=== PATIENT | male | born 1950 | race Caucasian/White ===

== ENCOUNTER 2016-02-17 11:40 | Inpatient (IN) | payer MEDICARE ==
[~2016-02-17] VITALS: Ht 177.8 cm; Wt 98.2 kg
[~2016-02-17 11:40] MED LIST: AMBIEN10 MG PO; AQUAPHOR HEALIN50 GM TOPICAL; ASPIRIN81 MG PO; BAYER CHEWABLE81 MG PO; EFFEXOR XR75 MG PO; EFFEXOR100 MG; EFFEXOR100 MG PO; EFFEXOR25 MG; FERROUS SULFAT325 MG PO; FISH OIL 1,0001 CA1 PO; FLEXERIL10 MG PO; FUROSEMIDE20 MG PO; GLIPIZIDE10 MG PO; GLUCOPHAGE1000 MG PO; GLUCOPHAGE500 MG PO; HYDROCODONE-APA1 TAB PO; HYTRIN1 MG PO; HYTRIN10 MG PO; ISOSORBIDE MONO30 M1 PO; ISOSORBIDE MONO60 M1; ISOSORBIDE MONO60 M1 PO; KENALOG IN ORABA5 GM TOPICAL; LANTUS INSULIN10 ML SC; LANTUS SOL100 UNIT/1 SC; LISINOPRIL2.5 MG PO; LOPRESSOR25 MG PO; LYRICA75 MG PO; MAG-OXIDE400 MG PO; MAGNESIUM OXID420 MG PO; MIRALAX17 GM PO; MOBIC7.5 MG PO; MULTI-DAY VITAM1 TAB PO; NAPROSYN500 MG PO; NEURONTIN 300300 MG PO; NEXIUM20 MG PO; NIASPAN500 MG PO; NIZORAL 2 % CRE15 GM TOPICAL; NORVASC10 MG PO; PRAVACHOL40 MG PO; PRAVACHOL80 MG PO; PRILOSEC20 MG PO; PRINIVIL20 MG PO; PROSCAR5 MG PO; PROVENTIL HFA6.7 GM INH; ROXICODONE30 MG PO; SENNA-C8.6 MG PO; TRICOR145 MG PO; TRIGLIDE50 MG PO; VALIUM10 MG PO; VIAGRA100 MG PO; VITAMIN B-1000 MCG/M IM; VITAMIN B-1250 MCG PO; VITAMIN D31000 UNI2 PO; VITAMIN D31000 UNIT PO; ZANAFLEX4 MG PO; ZITHROMAX250 MG PO
[2016-02-17 12:26] LABS: BASOPHILS 0.1 % (0.0-2.0); EOSINOPHILS 3.1 % (0-7); HEMATOCRIT 34.6 % (42.0-54.0); HEMOGLOBIN 11.1 g/dL (13.5-17.5); LYMPHOCYTES 6.1 % (15-50); MCH 28.2 pg (26.0-34.0); MCHC 32.1 g/dL (31.0-37.0); MCV 87.8 fL (80.0-100.0); MEAN PLATELET VOLUME 11.1 fL (7.4-10.4); MONOCYTES 9.4 % (2-11); NEUTROPHILS 81.3 % (40-80); RBC 3.94 10x6/uL (4.20-6.10); RDW 13.7 % (11.5-14.5)
[2016-02-17 12:28] LABS: PLATELET COUNT 92 10x3/uL (130-400)
[2016-02-17 12:39] LABS: ALBUMIN 3.6 g/dL (3.4-5.0); ANION GAP 13.5 mmol/L (8-16); BILIRUBIN - TOTAL 0.26 mg/dL (0.2-1.3); CALCIUM 8.6 mg/dL (8.5-10.1); CARBON DIOXIDE 24.3 mmol/L (21.0-32.0); CREATININE - SERUM 1.5 mg/dL (0.6-1.3); POTASSIUM - SERUM 3.8 mmol/L (3.5-5.1); PROTEIN - SERUM 6.9 g/dL (6.4-8.2)
[2016-02-17 13:03] LABS: TROPONIN-I 0.153 ng/mL (0.000-0.060)
[2016-02-17 14:32] LABS: APPEARANCE CLEAR (CLEAR); COLOR YELLOW (YELLOW); SPECIFIC GRAVITY 1.015 (1.005-1.020)
[2016-02-17 14:33] LABS: BILIRUBIN NEGATIVE (NEGATIVE); GLUCOSE 100 mg/dL (NEGATIVE); KETONE NEGATIVE (NEGATIVE); LEUKOCYTE ESTERASE TRACE (NEGATIVE); NITRITE NEGATIVE (NEGATIVE); PROTEIN NEGATIVE (NEGATIVE); UROBILINOGEN NORMAL (NORMAL)
[2016-02-17 14:38] LABS: BACTERIA FEW /hpf (NONE SEEN); MUCUS <1+ /lpf (NONE SEEN); RED CELLS - URINE RARE /hpf (0-5)
--- NOTE | 2016-02-17 15:40 | NUR ---
PATIENT TO ROOM 2106 FROM ER, PATIENT IS ALERT AND ORIENTED AT THIS TIME. PATIENT HAS A L FA IV AT THIS TIME. PATIENT ON 2L/MIN VIA NC WITH NAD NOTED AT THIS TIME. 02 SAT 98%. PATIENT IS COMPLAING OF CHEST PAIN AND PAIN THAT IS "JUST ALL OVER", STATES THAT "THEY NORMALLY GIVE ME MORPHINE" WILL CALL DR BECAUSE PATIENT DOESNT HAVE ANYTHING ORDERED FOR PAIN. SR ON MONITOR WITH A RATE OF 80 AT THIS TIME. WILL CONT TOMONITOR
[2016-02-17 16:06] VITALS: BP 151/72; BMI 28.7
--- NOTE | 2016-02-17 16:15 | NUR ---
TALKED WITH MAURA PENA, SHE ORDERED TO GIVE PATIENT 1-4MG OF MORPHINE Q4HPRN FOR CHEST PAIN. CPOC
--- NOTE | 2016-02-17 18:18 | NUR ---
PATIENT SITTING UP ON SIDE OF BED EATING DINNER. DENIES ANY NEEDS, STATES PAIN IS BETTER. WILL CONT TO MONITOR
[2016-02-17 19:01] LABS: CKMB 1.4 U/L (0.0-3.6)
[2016-02-17 19:02] LABS: CREATINE KINASE 390 UL (21-232); TROPONIN-I 0.155 ng/mL (0.000-0.060)
--- NOTE | 2016-02-17 22:41 | NUR ---
PT AWAKE, ALERT, ORIENTED, STANDING AT SINK RINSING HIS MOUTH. PT IS REQUESTING HIS PRN MORPHINE, DENIES ANY OTHER NEEDS. CONTINUE TO MONITOR CLOSELY. I HAVE DONE TEACHING ABOUT TAKING STEROIDS AND BEING DILIGENT WITH CHECKING HIS BLOOD SUGAR WHEN HE IS D/C. PT STATED HE WOULD. CONTINUE TO MONITOR CLOSELY. PT IS BLIND, REQUIRING SOME ASSISTANCE.
[2016-02-17 22:42] VITALS: BP 153/81
[2016-02-18 01:30] LABS: CKMB 1.1 U/L (0.0-3.6); CREATINE KINASE 379 UL (21-232)
[2016-02-18 05:35] VITALS: BP 150/90
--- NOTE | 2016-02-18 06:04 | NUR ---
PT LYING IN BED, EYES CLOSED, RESPIRATIONS EVEN AND UNLABORED. CONTINUE TO MONITOR CLOSELY.
[2016-02-18 07:13] LABS: CKMB 1.5 U/L (0.0-3.6); CREATINE KINASE 362 UL (21-232)
[2016-02-18 07:15] LABS: TROPONIN-I 0.144 ng/mL (0.000-0.060)
[2016-02-18 07:25] VITALS: BP 146/70
--- NOTE | 2016-02-18 07:25 | NUR ---
RECEIVED REPORT. ASSUMED CARE OF PATIENT. PATIENT OOB TO RESTROOM. PATIENT LEGALLY BLIND. RESP EVEN AND UNLABORED. NO DISTRESS. A&O. CALL LIGHT PLACED WITHIN REACH.
--- NOTE | 2016-02-18 08:17 | NUR ---
MEDICATED FOR PAIN AT THIS TIME. NO DISTRESS.
--- NOTE | 2016-02-18 08:37 | NUR ---
REFUSING SCD'S. PT IS UP AD XIAO
--- NOTE | 2016-02-18 09:46 | NUR ---
PATIENT UP AMBULATING IN ROOM, WASHING HIS FACE. PATIENT DENIES NEEDS AT THIS TIME. NO DISTRESS. CALL LIGHT WITHIN REACH.
[2016-02-18 11:00] VITALS: Ht 177.8 cm; Wt 98.2 kg
[2016-02-18 11:21] VITALS: BP 143/74
--- NOTE | 2016-02-18 11:49 | NUR ---
FSBS 360. 10 UNITS HUMALOG ADMINISTERED PER SLIDING SCALE AT THIS TIME. NO DISTRESS.
[2016-02-18 14:24] LABS: % SATURATION 14 % (15-55); IRON 49 ug/dl (35-150); TOTAL IRON BIND CAPACITY 337 ug/dl (260-445); UNSAT IRON BIND CAPACITY 288 ug/dl (150-375)
[2016-02-18 15:33] VITALS: BP 115/59
--- NOTE | 2016-02-18 17:24 | NUR ---
FSBS 358. 16 UNITS HUMALOG ADMINISTERED AT THIS TIME. NO DISTRESS.
[2016-02-18 22:28] VITALS: BP 137/66
[2016-02-19 00:59] VITALS: BP 123/57
--- NOTE | 2016-02-19 03:14 | NUR ---
NURSE ROUNDS 19:30 - PT AWAKE, ALERT, ORIENTED, C/O PAIN EVEN AFTER RECENT MORPHINE IVP. DENIES ANY NEEDS. PT IS BLIND, WITH RT EYE IMPLANT. BED LOW, CALL LIGHT IN REACH, SIDE RAILS X 2, HOB 10 DEGREES. PT IS MOSTLY SELF ASSIST, AND REQUIRES ONLY MINIMAL ASSISTANCE AT THIS TIME.
--- NOTE | 2016-02-19 04:09 | NUR ---
WHEN PULLING PTS 21:00 MEDS FOR THIS SHIFT, I PULLED TWO LYRICA 75MG, WHEN ONLY ONE WAS ORDERED, AND I ONLY GAVE ONE TO PT ORDERED. THIS DID CAUSE A DISCREPANCY IN THE PYXIS. I DID RETURN THE SECOND LYRICA 75MG TO THE INTERNAL BIN.
--- NOTE | 2016-02-19 04:12 | NUR ---
I SPOKE WITH PT R/T THE ORDERED STOOL TESTS. PT STATES HE HAS NOT HAD A BM RECENTLY, AND THAT HE HAS NOT ANY MORE BOUTS OF DIARRHEA AT PRESENT TIME. PROVIDED A [place] HAT AND COLLECTION CUP FOR WHEN HE IS ABLE TO HAVE A BM.
[2016-02-19 05:21] VITALS: BP 137/74
[2016-02-19 06:59] LABS: BASOPHILS 0.1 % (0.0-2.0); EOSINOPHILS 0 % (0-7); HEMATOCRIT 30.4 % (42.0-54.0); HEMOGLOBIN 9.9 g/dL (13.5-17.5); IMMATURE GRANULOCYTES 0.5 % (0-5); LYMPHOCYTES 8.3 % (15-50); MCH 28.4 pg (26.0-34.0); MCHC 32.6 g/dL (31.0-37.0); MCV 87.1 fL (80.0-100.0); MEAN PLATELET VOLUME 11.7 fL (7.4-10.4); MONOCYTES 5.4 % (2-11); NEUTROPHILS 85.7 % (40-80); RBC 3.49 10x6/uL (4.20-6.10); RDW 13.9 % (11.5-14.5)
[2016-02-19 07:08] LABS: PLATELET COUNT 115 10x3/uL (130-400); WBC 9.4 10x3/uL (4.8-10.8)
[2016-02-19 07:37] LABS: ANION GAP 11.2 mmol/L (8-16); CARBON DIOXIDE 26.5 mmol/L (21.0-32.0); CREATININE - SERUM 1.2 mg/dL (0.6-1.3); POTASSIUM - SERUM 4.7 mmol/L (3.5-5.1)
[2016-02-19 08:00] VITALS: BP 142/65
[2016-02-19 08:15] LABS: ERYTHROCYTE SEDIMENTATION RATE 32 mm/hr (0-20)
--- NOTE | 2016-02-19 09:30 | NUR ---
Lying in bed, has requested his pain medication for 1000." I hurt all over" Respirations easy, call light within reach.
[2016-02-19 12:00] VITALS: BP 143/74
[2016-02-19 14:21] LABS: FOLATE (FOLIC ACID) - SERUM 2.8 ng/mL (>3.0)
[2016-02-19 16:00] VITALS: BP 128/65
[2016-02-19 20:26] VITALS: BP 172/85
--- NOTE | 2016-02-19 23:35 | NUR ---
NURSE ROUNDS 19:30 - PT AWAKE, ALERT, ORIENTED, REMINDING ME THAT HIS PAIN MEDICATION IS DUE @ 21:30 (ACTUALLY WAS NOT DUE UNTIL 22:40). DENIES ANY NEEDS. CONTINUE TO MONITOR CLOSELY. BED LOW, CALL LIGHT IN REACH, SIDE RAILS X 2, HOB 15 DEGREES.
[2016-02-20 00:38] VITALS: BP 154/67
[2016-02-20 04:40] VITALS: BP 159/85
[2016-02-20 05:57] LABS: INR 1.04 (0.85-1.17); PROTIME 13.4 SECONDS (11.6-15.0)
[2016-02-20 06:13] LABS: ANION GAP 12.8 mmol/L (8-16); C-REACTIVE PROTEIN 2.7 mg/dL (0.0-0.9); CALCIUM 9.6 mg/dL (8.5-10.1); CARBON DIOXIDE 27.1 mmol/L (21.0-32.0); CREATININE - SERUM 1.3 mg/dL (0.6-1.3); POTASSIUM - SERUM 4.9 mmol/L (3.5-5.1)
[2016-02-20 06:41] LABS: BASOPHILS 0.1 % (0.0-2.0); EOSINOPHILS 0 % (0-7); HEMATOCRIT 31.2 % (42.0-54.0); HEMOGLOBIN 10.2 g/dL (13.5-17.5); IMMATURE GRANULOCYTES 0.7 % (0-5); LYMPHOCYTES 8.1 % (15-50); MCH 28.6 pg (26.0-34.0); MCHC 32.7 g/dL (31.0-37.0); MCV 87.4 fL (80.0-100.0); MEAN PLATELET VOLUME 11.7 fL (7.4-10.4); MONOCYTES 6.1 % (2-11); PLATELET COUNT 136 10x3/uL (130-400); RBC 3.57 10x6/uL (4.20-6.10); RDW 13.9 % (11.5-14.5); WBC 8.3 10x3/uL (4.8-10.8)
[2016-02-20 08:00] VITALS: BP 143/76
--- NOTE | 2016-02-20 08:17 | NUR ---
AM ROUNDING- PT IS LAYING IN BED ON BACK REQUESTING PAIN MEDICINE. TELEHEALTH DIRECTOR NURSE HILARIA GAVE PRN PAIN MEDICINE ORDERED. PT IS ON EP. FSBS ACHS. PT IS BLIND, HAS IMPLANT IN RIGHT EYE, HE CAN SEE SHADOWS. PT CANNOT SEE OUT OF LEFT EYE. IV SEEN TO LEFT WRIST SALINE LOCKED AND PATENT. ON 2L OF VIA NC PRN. ON MONITOR SHOWING SR, HR 84. PT IS UP AD XIAO AND ON LOVENOX. WILL CONTINUE TO MONITOR.
[2016-02-20 08:30] LABS: ERYTHROCYTE SEDIMENTATION RATE 25 mm/hr (0-20)
[2016-02-20 09:15] LABS: ANA REFLEX - DIRECT Negative (Negative)
[2016-02-20 12:00] VITALS: BP 138/78
--- NOTE | 2016-02-20 12:28 | NUR ---
Nutrition follow-up: Diet: consistent CHO Pt only eats two meals a day and his eats one of his meals every day. PO intake 100% of meals eaten. Labs reviewed; FSBS running high Wt: 218# Will continue to provide food choices and honor food preferences within diet restrictions. RDN following.
[2016-02-20 16:00] VITALS: BP 137/67
--- NOTE | 2016-02-20 18:33 | NUR ---
PT WALKING AROUND ROOM WITH IV RUNNING AT KVO (10). PT IS CURRENTLY REQUESTING PAIN MEDICATION. WILL CONTINUE TO MONITOR.
[2016-02-20 20:34] VITALS: BP 140/78
[2016-02-21] VITALS: BP 140/86
[2016-02-21 05:16] LABS: BASOPHILS 0.1 % (0.0-2.0); EOSINOPHILS 0.1 % (0-7); HEMATOCRIT 33.8 % (42.0-54.0); IMMATURE GRANULOCYTES 1.3 % (0-5); LYMPHOCYTES 10.7 % (15-50); MCH 28.4 pg (26.0-34.0); MCHC 32.5 g/dL (31.0-37.0); MCV 87.3 fL (80.0-100.0); MEAN PLATELET VOLUME 10.9 fL (7.4-10.4); MONOCYTES 8.1 % (2-11); NEUTROPHILS 79.7 % (40-80); PLATELET COUNT 138 10x3/uL (130-400); RBC 3.87 10x6/uL (4.20-6.10); WBC 7.8 10x3/uL (4.8-10.8)
--- NOTE | 2016-02-21 05:29 | NUR ---
CALL LIGHT IN REACH. WILL CONTINUE WITH PLAN OF CARE.
[2016-02-21 05:32] LABS: CALCIUM 9.9 mg/dL (8.5-10.1); CARBON DIOXIDE 28.8 mmol/L (21.0-32.0); CREATININE - SERUM 1.2 mg/dL (0.6-1.3); POTASSIUM - SERUM 4.8 mmol/L (3.5-5.1)
--- NOTE | 2016-02-21 07:45 | NUR ---
AM ROUNDING- PT IS CURRENTLY USING BATHROOM. UP AD XIAO. ON MONITOR SHOWING SR, HR 66. IV SEEN TO LEFT WRIST WITH NS RUNNING AT KVO (10). ON 2L 0F 02 VIA NC. PT STATES HE IS BLIND IN LEFT EYE AND HAS IMPLANT IN RIGHT EYE THAT HE CAN ONLY SEE SHADOWS. 0748- CALLED INTO PTS ROOM WITH PT STATING HE ACCIDENTLY PULLED OUT HIS IV CATHETER. PT UNHOOKED HIMSELF FROM IV PUMP. INFORMED PT TO GET IN BED AND I WILL TRY AND RESITE IV. WILL CONTINUE TO MONITOR.
[2016-02-21 08:18] LABS: IMMUNOGLOBULIN E 28 IU/mL (0-100)
--- NOTE | 2016-02-21 08:25 | NUR ---
PAGEYuliana LORENZO TO SEE IF WE COULD GET PT PO ORDERS SINCE PT PULLED IV OUT. AWAITING CALLBACK.
[2016-02-21 09:01] VITALS: BP 147/85
[2016-02-21 09:15] LABS: ANA REFLEX - DIRECT Negative (Negative)
--- NOTE | 2016-02-21 09:29 | NUR ---
JENNIFER RN CALLED MAURA AND RECEIVED PO ORDERS FOR PTS MORPHINE. PT NOW REFUSING ALL MEDICINE BECAUSE HE WANTS IV MORPHINE NOT PO MORPHINE. PT NOW STATES HE JUST WANTS TO GO HOME. 9391- PAGED MAURA TO INFORM HER OF SITUATION. AWAITING CALLBACK.
--- NOTE | 2016-02-21 09:32 | NUR ---
0933- MAURA IS ON UNIT. INFORMED HER OF SITUATION WITH PT WANTING TO GO HOME AND REFUSING ALL OF HIS MORNING MEDICINE. MAURA STATED HE WILL HAVE TO WAIT UNITL SHE MAKES HER ROUNDS TO SEE HIM. WILL CONTINUE TO MONITOR.
--- NOTE | 2016-02-21 10:01 | NUR ---
PATIENT IS UPSET AND STATING THAT HE IS LEAVING WHEN HIS GETS HERE. PATIENT IS LEGALLY BLIND AND STATES THAT HIS , FERNIE WILL DRIVE HIM HOME AT DISCHARGE. HE STATES HE DOES NOT DRIVE BECAUSE HE IS BLIND. HIS PCP IS DR. VÁSQUEZ AT THE [facility]. [facility] AND DOES NOT USE ANY LOCAL PHARMACIES. HE INSISTS HE WILL GET MEDS FROM [facility]. PATIENT STATES HE HAS A CANE, NEBULIZER AND CPAP PROVIDED BY THE [facility]. HE DENIES HOME HEALTH STATING HIS GETS PAID FROM THE [facility] TO CARE FOR HIM. PATIENT STATES HE DOES NOT KNOW HOW MANY STEPS TO ENTER HIS HOME, "I NEVER COUNTED THEM". PATIENT STATES HIS IS ON HER WAY HERE TO GET HIM AND HE STATES HE WILL NEVER COME BACK TO THIS HOSPITAL. I ASKED HIM IF I COULD HAVE THE PIPE FITTER GAS PIPE COME TALK WITH HIM ABOUT HIS CONCERNS. HE SAID FLAT OUT NO, I JUST WANT YOU ALL TO LEAVE ME ALONE. NO DISCHARGE NEEDS IDENTIFIED.
--- NOTE | 2016-02-21 10:08 | NUR ---
Is the patient Alert and Oriented? Yes 0 * How many steps to enter\exit or inside your home? DON'T KNOW 0 * PCP DR. VÁSQUEZ AT THE [facility] 0 * Pharmacy GETS MEDS FROM [place]-REFUSES TO USE LOCAL PHARMACY 0 * Preadmission Environment Home with Family 0 * ADLs Independent 0 * Equipment Cane CPAP Nebulizer 0 * Other Equipment [facility] * List name and contact numbers for known caregivers / representatives who currently or will assist patient after discharge: SPOUSE: FERNIE [phone] 0 * Community resources currently utilized None 0 * Additional services required to return to the preadmission environment? No 0 * Can the patient safely return to the preadmission environment? Yes 0 * Has this patient been hospitalized within the prior 30 days at any hospital? No
[2016-02-21 10:17] LABS: HEP B CORE AB TOTAL Negative (Negative); HEPATITIS C ANTIBODY <0.1 (0.0-0.9); IMMUNOGLOBULIN A 279 mg/dL (61-437); IMMUNOGLOBULIN G 875 mg/dL (700-1600)
--- NOTE | 2016-02-21 10:51 | NUR ---
1042Cheyenne RODRIGUEZ RN WATCHED PT WALK OUT OF ROOM WITH . PT LEFT AMA AND REFUSED TO SIGN DISCHARGE PAPERWORK. PT REFUSED TO SPEAK WITH CASE MANAGEMENT. WAS UNABLE TO GET SHIFT ASSESSMENT DUE TO THE FACT THAT PT LEFT WITHOUT ASSESSMENT BEING DONE.
[2016-02-21 12:15] LABS: EBV - EARLY ANTIGEN AB IGG <9.0 U/mL (0.0-8.9); EBV VIRAL CAPSID AB IGG >600.0 U/mL (0.0-17.9); EBV VIRAL CAPSID AB IGM <36.0 U/mL (0.0-35.9)
[2016-02-21 15:21] LABS: MYCOPLASMA PNEUMO IGG QNS U/mL (())
[2016-02-25 12:17] LABS: BARTONELLA - HENSELAE IGG Negative titer (Neg:<1:320); BARTONELLA - HENSELAE IGM Negative titer (Neg:<1:100); BARTONELLA - QUINTANA IGG Negative titer (Neg:<1:320); BARTONELLA - QUINTANA IGM Negative titer (Neg:<1:100); RMSF IGM 1.24 index (0.00-0.89)
[2016-02-25 14:20] LABS: EHRLICHIA CHAFF IGG Negative (Neg:<1:64); EHRLICHIA CHAFF IGM Negative (Neg:<1:20); HGE IGG TITER Negative (Neg:<1:64); HGE IGM TITER Negative (Neg:<1:20)
[2016-02-25 16:12] LABS: F. TULARENSIS - IGG Negative (()); F. TULARENSIS - IGM Negative (())
--- NOTE | 2016-02-28 11:11 | EC ---
PATIENT:RADHA RAJAN DATE OF SERVICE: 02/17/16 SEX: M MEDICAL RECORD: [id number] DATE OF : 46 LOCATION:D.M2 D.210 AGE OF PATIENT: 65 ADMISSION DATE: 02/17/16 REFERRING PHYSICIAN: INTERPRETING PHYSICIAN: CECIL COWAN MD ECHOCARDIOGRAM REPORT ECHO CHARGES 4 ECHO COMPLETE CLINICAL DIAGNOSIS: ASSESS FOR ENDCARDITIS DUE TO FEVER AND INFECTION OF UNKNOWN ETOLOGY. ASSESS PACER LEADS ECHOCARDIOGRAPHIC MEASUREMENTS (adult normal given) AC root (d.<3.7cm) 4.4 LV Septum d (<1.2 cm> 1.7 Valve Excursion 2.0 LV Septum (systole) 1.8 Left Atria (s.<4.0cm> 4.5 LVPW d(<1.2cm) 2.0 RV (d.<2.3cm) 3.8 LVPW (sytole) 2.2 LV diastole(<5.6CM) 6.8 MV E-F(>70mm/sec) LV systole 4.4 LVOT Diameter 2.1 MV exc.(>10mm) 2.4 Est.ejection fraction (50-75%) Pericardial Effusion N DOPPLER: LVIT A 104 E 68.0 LA RVSP 26 LVOT 125 AOP1/2T 492 Asc. Ao 138 RVOT 84 RA PA 128 AV Gradient Peak 7.6 AV Mean 3.7 AV Area 3.0 MV Gradient Peak 5.46 MV Mean 1.68 MV Area COMMENTS: Manager Regional Sales: Octaviano HOUSE Inspection Clerk:Damon Crawley TAPE# PACS DATE OF SERVICE: 02/20/2016 Echocardiogram FINDINGS: 1. Left ventricular chamber size is mildly dilated. Left ventricular systolic function is preserved. Overall ejection fraction estimated at 60%. 2. Left atrium is enlarged at 4.5 cm. Right atrium and right ventricular sizes are within normal limits. ECHOCARDIOGRAM REPORT [id number] RADHA RAJAN 3. Valvular structures have normal structure and motion. 4. Doppler interrogation reveals mild aortic insufficiency, mild mitral regurgitation, and mild tricuspid regurgitation. No other valvular insufficiency or stenosis. Pulmonary systolic pressure is normal estimated at 26 mmHg. 5. No evidence of vegetative endocarditis. TRANSINT:[id number] Voice Confirmation ID: [id number] DOCUMENT ID: [id number] CECIL COWAN MD at 1111 CC: [id number] DICTATION DATE: 02/20/16 1740 MARKETING COMPLIANCE MANAGER: 02/20/162125 DIS IN 02/21/16 [id number] [place] [address]
--- NOTE | 2016-04-07 09:49 | DS ---
PATIENT:RADHA RAJAN :46 MEDICAL RECORD: [id number] DISCHARGE SUMMARY ADMISSION DATE: 02/17/16 DISCHARGE DATE: 02/21/16 DATE OF ADMISSION: 02/17/2016 DATE OF DISCHARGE: 02/21/2016 DISCHARGE DIAGNOSES: 1. Fever. 2. Acute exacerbation of chronic obstructive pulmonary disease. 3. Dyspnea on exertion. 4. Unintentional weight loss. 5. Elevated troponin secondary to demand ischemia. 6. Thrombocytopenia. 7. Splenomegaly. 8. Coronary artery disease. 9. Adithya dysfunction post-pacemaker placement. 10. Laqda-nx-yezjwgy kidney injury. 11. Hypertension. 12. Hyperlipidemia. 13. Blindness. 14. Coronary artery disease. 15. Iron deficiency anemia. CONSULTS: 1. Dr. Weems for elevated troponin. 2. Dr. Hagan for febrile illness. 3. Dr. Link. DIAGNOSTIC STUDIES OR TESTS: 1. Chest x-ray, which shows mild interstitial disease. 2. Venous Doppler showed no evidence of DVT in the lower extremity. 3. Abdominal ultrasound, which shows a fatty liver infiltrates with splenomegaly. 4. CT of the chest shows interstitial disease in the right upper lobe with some mild chronic fibro atelectasis in bilateral lung everett and minimal emphysema. There were no lesions or infiltrate seen. 5. A 2D echo, which shows an EF of 60% with a normal right atria and right ventricle sizes. There was mild aortic insufficiency and mild mitral regurgitation as well as tricuspid regurgitation. There was no evidence of vegetative endocarditis. HOSPITAL COURSE: The full H&P is listed elsewhere on the chart for this 65-year-old male patient who was admitted into the inpatient setting with a febrile illness. He had failed outpatient therapy for his COPD and respiratory exacerbation with oral doxycycline. He was admitted into the inpatient setting with COPD exacerbation and pqaau-uh-krzvxai sinusitis as well as an elevated troponin. His troponin was thought to be secondary to a stress week. The patient had recently had a left heart cath, which showed minimal coronary artery disease, more small vessel disease in nature. He underwent several diagnostic tests. Abdominal ultrasound revealed some hepatosplenomegaly with possible portal hypertension. He was placed on antibiotic therapy with aggressive pulmonary toilet with DuoNebs and DISCHARGE SUMMARY REPORT [id number] RADHA RAJAN mucolytics. The patient's antibiotic coverage included azithromycin and Rocephin. He underwent a repeat echo, see those findings above. He was noted to have some iron deficiency anemia and was started on oral iron supplementation. Symptomatology began to improve. His steroid dosing was deescalated. The patient's respiratory status improved dramatically with aggressive pulmonary toilet; however, the patient began to want more and more analgesics for "pain" due to fibromyalgia. He became dissatisfied during his hospitalization and left the hospital AMA. TRANSINT:[id number] Voice Confirmation ID: [id number] DOCUMENT ID: [id number] Dictated By: RODRIGO PATINO I have interviewed/examined the above patient and agree with these documented findings. OSCAR ESCOBAR MD at 1421 at 0948 CC: [id number] DICTATION DATE: 04/01/16 0854 SUPERVISOR VARNISH: 04/01/16 2339 DIS IN 02/21/[address] [facility] [address] [place] [address]
== END 2016-02-21 10:50 | disposition left against medical advice (07) | DRG 190 ==
LOC: D.ER 11:40 → D.M2 15:11
PROVIDERS: Emergency Medicine; Internal Medicine Pulmonary Disease; Student in an Organized Health Care Education/Training Program; ADMIT Family Medicine Adult Medicine
DX: J44.1 Chronic obstructive pulmonary disease with (acute) exacerbation (principal); J18.9 Pneumonia, unspecified organism; I24.8 Other forms of acute ischemic heart disease; J98.11 Atelectasis; N17.9 Acute kidney failure, unspecified; I25.10 Atherosclerotic heart disease of native coronary artery without angina pectoris; E11.22 Type 2 diabetes mellitus with diabetic chronic kidney disease; I12.9 Hypertensive chronic kidney disease with stage 1 through stage 4 chronic kidney disease, or unspecified chronic kidney disease; N18.9 Chronic kidney disease, unspecified; D50.9 Iron deficiency anemia, unspecified; J01.90 Acute sinusitis, unspecified; K76.0 Fatty (change of) liver, not elsewhere classified; R16.2 Hepatomegaly with splenomegaly, not elsewhere classified; R63.4 Abnormal weight loss; Z68.28 Body mass index [BMI] 28.0-28.9, adult; M79.7 Fibromyalgia; E78.5 Hyperlipidemia, unspecified; G47.33 Obstructive sleep apnea (adult) (pediatric); K21.9 Gastro-esophageal reflux disease without esophagitis; H54.8 Legal blindness, as defined in USA; Z95.0 Presence of cardiac pacemaker; Z95.5 Presence of coronary angioplasty implant and graft

== ENCOUNTER → 2016-03-11 20:54 | Outpatient (CLI) | payer MEDICARE ==
[2016-02-18 11:00] VITALS: BMI 31.3
[2016-03-16 14:15] LABS: RMSF IGM 1.17 index (0.00-0.89)
== END | disposition home or self-care (01) ==
LOC: D.LABREF 20:54
PROVIDERS: Student in an Organized Health Care Education/Training Program
DX: A77.0 Spotted fever due to Rickettsia rickettsii (principal)

== ENCOUNTER 2016-11-24 09:19 | Emergency (ER) | payer MEDICARE ==
[2016-02-18 11:00] VITALS: BMI 31.3
[2016-11-24 10:18] LABS: BASOPHILS 0.2 % (0-2); EOSINOPHILS 1.5 % (0-7); HEMOGLOBIN 10.4 g/dL (13.5-17.5); IMMATURE GRANULOCYTES 0.2 % (0-5); LYMPHOCYTES 13.8 % (15-50); MCH 30.3 pg (26.0-34.0); MCHC 33.5 g/dL (31.0-37.0); MCV 90.4 fL (80.0-100.0); MEAN PLATELET VOLUME 10.9 fL (7.4-10.4); MONOCYTES 9.4 % (2-11); NEUTROPHILS 74.9 % (40-80); RBC 3.43 10x6/uL (4.20-6.10); RDW 12.8 % (11.5-14.5); WBC 9.1 10x3/uL (4.8-10.8)
[2016-11-24 10:19] LABS: PLATELET COUNT 106 10x3/uL (130-400)
[2016-11-24 10:30] LABS: ALBUMIN 3.2 g/dL (3.4-5.0); ALKALINE PHOSPHATASE 68 U/L (46-116); ALT (SGPT) 30 U/L (10-68); BILIRUBIN - TOTAL 0.36 mg/dL (0.2-1.3); CALC OSMOLALITY 272 mosm/kg (275-300); CALCIUM 8.5 mg/dL (8.5-10.1); CARBON DIOXIDE 26.9 mmol/L (21.0-32.0); CHLORIDE - SERUM 100 mmol/L (98-107); CREATININE - SERUM 1.3 mg/dL (0.6-1.3); GLUCOSE 178 mg/dL (74-106); MAGNESIUM - SERUM 1.4 mg/dL (1.8-2.4); POTASSIUM - SERUM 3.8 mmol/L (3.5-5.1); PROTEIN - SERUM 6.8 g/dL (6.4-8.2); SODIUM 135 mmol/L (136-145); UREA NITROGEN 11 mg/dL (7-18); eGFR NON AFRICAN AMERICAN 58 mL/min (90-120)
[2016-11-24 10:39] LABS: KETONE - SERUM NEGATIVE (NEGATIVE)
[2016-11-26 16:15] LABS: EHRLICHIA CHAFF IGG Negative (Neg:<1:64); EHRLICHIA CHAFF IGM Negative (Neg:<1:20); HGE IGG TITER Negative (Neg:<1:64); HGE IGM TITER Negative (Neg:<1:20)
[2016-11-27 20:09] LABS: RMSF IGM 1.13 index (0.00-0.89)
== END 2016-11-24 14:59 | disposition home or self-care (01) ==
LOC: D.ER 09:19
PROVIDERS: Emergency Medicine
DX: A77.0 Spotted fever due to Rickettsia rickettsii (principal); E11.9 Type 2 diabetes mellitus without complications; J44.9 Chronic obstructive pulmonary disease, unspecified; I10 Essential (primary) hypertension

== ENCOUNTER 2016-12-03 07:40 | Emergency (ER) | payer MEDICARE ==
[2016-02-18 11:00] VITALS: BMI 31.3
[2016-12-03 08:51] LABS: BASOPHILS 0.2 % (0-2); EOSINOPHILS 2.3 % (0-7); HEMATOCRIT 33.3 % (42.0-54.0); HEMOGLOBIN 11.3 g/dL (13.5-17.5); IMMATURE GRANULOCYTES 0.2 % (0-5); LYMPHOCYTES 14.2 % (15-50); MCH 30.1 pg (26.0-34.0); MCHC 33.9 g/dL (31.0-37.0); MCV 88.6 fL (80.0-100.0); MEAN PLATELET VOLUME 10.3 fL (7.4-10.4); MONOCYTES 9.2 % (2-11); NEUTROPHILS 73.9 % (40-80); RBC 3.76 10x6/uL (4.20-6.10); RDW 12.4 % (11.5-14.5); WBC 10.3 10x3/uL (4.8-10.8)
[2016-12-03 08:58] LABS: PLATELET COUNT 154 10x3/uL (130-400)
[2016-12-03 09:01] LABS: ALBUMIN 3.4 g/dL (3.4-5.0); ANION GAP 13.5 mmol/L (8-16); BILIRUBIN - TOTAL 0.38 mg/dL (0.2-1.3); CALCIUM 9.2 mg/dL (8.5-10.1); CARBON DIOXIDE 26.7 mmol/L (21.0-32.0); CREATININE - SERUM 1.1 mg/dL (0.6-1.3); POTASSIUM - SERUM 4.2 mmol/L (3.5-5.1); PROTEIN - SERUM 7.5 g/dL (6.4-8.2)
[2016-12-03 09:35] LABS: MAGNESIUM - SERUM 1.4 mg/dL (1.8-2.4); THYROID STIMULATING HORMONE 2.18 uIU/mL (0.36-3.74)
[2016-12-03 09:38] LABS: APPEARANCE CLEAR (CLEAR); BILIRUBIN NEGATIVE (NEGATIVE); COLOR YELLOW (YELLOW); GLUCOSE 1000 mg/dL (NEGATIVE); KETONE NEGATIVE (NEGATIVE); NITRITE NEGATIVE (NEGATIVE); PROTEIN NEGATIVE (NEGATIVE); SPECIFIC GRAVITY 1.015 (1.005-1.020); UROBILINOGEN NORMAL (NORMAL)
[2016-12-03 11:54] LABS: TROPONIN-I 0.072 ng/mL (0.000-0.060)
[2016-12-07 20:08] LABS: RMSF IGM 1.32 index (0.00-0.89)
== END 2016-12-03 14:02 | disposition home or self-care (01) ==
LOC: D.ER 07:40
PROVIDERS: Emergency Medicine
DX: R53.1 Weakness (principal); R50.9 Fever, unspecified; G40.909 Epilepsy, unspecified, not intractable, without status epilepticus; R41.82 Altered mental status, unspecified; Z87.898 Personal history of other specified conditions; E11.65 Type 2 diabetes mellitus with hyperglycemia; D64.9 Anemia, unspecified; E83.42 Hypomagnesemia

== ENCOUNTER 2017-04-16 15:46 | Emergency (ER) | payer OTHER ==
[2016-02-18 11:00] VITALS: BMI 31.3
== END 2017-04-16 19:05 | disposition left against medical advice (07) ==
LOC: D.ER 15:46
DX: R05 Cough (principal)

== ENCOUNTER 2017-06-23 20:46 | Emergency (ER) | payer OTHER ==
[2016-02-18 11:00] VITALS: BMI 31.3
[2017-06-23 23:56] LABS: HEMOGLOBIN 12.6 g/dL (13.5-17.5); LYMPHOCYTES 20.6 % (15-50); MCH 29.3 pg (26.0-34.0); MCHC 34.1 g/dL (31.0-37.0); MEAN PLATELET VOLUME 9.8 fL (7.4-10.4); PLATELET COUNT 142 10x3/uL (130-400); RDW 12.6 % (11.5-14.5); WBC 7.2 10x3/uL (4.8-10.8)
[2017-06-24 00:18] LABS: ALBUMIN 3.7 g/dL (3.4-5.0); ANION GAP 11.9 mmol/L (8-16); BILIRUBIN - TOTAL 0.26 mg/dL (0.2-1.3); CALCIUM 9.3 mg/dL (8.5-10.1); CREATININE - SERUM 1.2 mg/dL (0.6-1.3); POTASSIUM - SERUM 3.9 mmol/L (3.5-5.1); PROTEIN - SERUM 8.2 g/dL (6.4-8.2)
== END 2017-06-24 01:39 | disposition home or self-care (01) ==
LOC: D.ER 20:46
PROVIDERS: Physician Assistant Medical
DX: M19.90 Unspecified osteoarthritis, unspecified site (principal); E11.9 Type 2 diabetes mellitus without complications; G40.909 Epilepsy, unspecified, not intractable, without status epilepticus

== ENCOUNTER 2017-07-06 07:10 | Emergency (ER) | payer OTHER ==
[2016-02-18 11:00] VITALS: BMI 31.3
== END 2017-07-06 07:45 | disposition home or self-care (01) ==
LOC: D.ER 07:10
DX: L20.9 Atopic dermatitis, unspecified (principal); E11.9 Type 2 diabetes mellitus without complications; G40.909 Epilepsy, unspecified, not intractable, without status epilepticus

== ENCOUNTER → 2017-08-02 12:39 | Outpatient (CLI) | payer OTHER ==
[2016-02-18 11:00] VITALS: BMI 31.3
[2017-08-02 13:33] LABS: BASOPHILS 0.6 % (0-2); EOSINOPHILS 6.6 % (0-7); HEMATOCRIT 35.8 % (42.0-54.0); IMMATURE GRANULOCYTES 0.4 % (0-5); LYMPHOCYTES 26.2 % (15-50); MCH 29.9 pg (26.0-34.0); MCHC 33.5 g/dL (31.0-37.0); MCV 89.3 fL (80.0-100.0); MONOCYTES 10.1 % (2-11); NEUTROPHILS 56.1 % (40-80); PLATELET COUNT 138 10x3/uL (130-400); RBC 4.01 10x6/uL (4.20-6.10); RDW 12.7 % (11.5-14.5); WBC 4.9 10x3/uL (4.8-10.8)
[2017-08-02 13:54] LABS: ANION GAP 13.8 mmol/L (8-16); CALCIUM 9.4 mg/dL (8.5-10.1); CARBON DIOXIDE 28.1 mmol/L (21.0-32.0); CREATININE - SERUM 1.1 mg/dL (0.6-1.3); POTASSIUM - SERUM 3.9 mmol/L (3.5-5.1); VANCOMYCIN - TROUGH 12.5 ug/mL (10.0-20.0)
== END | disposition home or self-care (01) ==
LOC: D.LABREF 12:39
DX: I33.0 Acute and subacute infective endocarditis (principal); Z51.81 Encounter for therapeutic drug level monitoring; Z79.899 Other long term (current) drug therapy; A77.0 Spotted fever due to Rickettsia rickettsii

== ENCOUNTER → 2017-08-09 12:36 | Outpatient (CLI) | payer OTHER ==
[2016-02-18 11:00] VITALS: BMI 31.3
[2017-08-09 12:52] LABS: BASOPHILS 0.4 % (0-2); EOSINOPHILS 6.1 % (0-7); HEMATOCRIT 33.2 % (42.0-54.0); HEMOGLOBIN 10.9 g/dL (13.5-17.5); IMMATURE GRANULOCYTES 0.4 % (0-5); LYMPHOCYTES 27.6 % (15-50); MCH 29.5 pg (26.0-34.0); MCHC 32.8 g/dL (31.0-37.0); MCV 89.7 fL (80.0-100.0); MEAN PLATELET VOLUME 10.2 fL (7.4-10.4); MONOCYTES 13.6 % (2-11); NEUTROPHILS 51.9 % (40-80); PLATELET COUNT 118 10x3/uL (130-400); RDW 13.2 % (11.5-14.5); WBC 4.6 10x3/uL (4.8-10.8)
[2017-08-09 13:07] LABS: ANION GAP 11.3 mmol/L (8-16); CALCIUM 8.6 mg/dL (8.5-10.1); CARBON DIOXIDE 31.2 mmol/L (21.0-32.0); CREATININE - SERUM 1.1 mg/dL (0.6-1.3); POTASSIUM - SERUM 3.5 mmol/L (3.5-5.1); VANCOMYCIN - TROUGH 30.7 ug/mL (10.0-20.0)
== END | disposition home or self-care (01) ==
LOC: D.LABREF 12:36
DX: I33.0 Acute and subacute infective endocarditis (principal); Z51.81 Encounter for therapeutic drug level monitoring; Z79.899 Other long term (current) drug therapy

== ENCOUNTER → 2017-08-23 12:58 | Outpatient (CLI) | payer OTHER ==
[2016-02-18 11:00] VITALS: BMI 31.3
[~2017-08-23 12:58] MED LIST changes: +CIPRO500 MG PO; +PLAVIX75 MG PO
[2017-08-23 13:43] LABS: BASOPHILS 0.6 % (0-2); EOSINOPHILS 7.2 % (0-7); HEMOGLOBIN 11.2 g/dL (13.5-17.5); LYMPHOCYTES 23.7 % (15-50); MCH 29.9 pg (26.0-34.0); MCHC 33.9 g/dL (31.0-37.0); MCV 88.2 fL (80.0-100.0); MEAN PLATELET VOLUME 10.5 fL (7.4-10.4); MONOCYTES 8.4 % (2-11); NEUTROPHILS 60.1 % (40-80); RBC 3.74 10x6/uL (4.20-6.10)
[2017-08-23 14:06] LABS: ANION GAP 12.1 mmol/L (8-16); CALCIUM 8.9 mg/dL (8.5-10.1); CREATININE - SERUM 1.2 mg/dL (0.6-1.3); POTASSIUM - SERUM 4.1 mmol/L (3.5-5.1); VANCOMYCIN - TROUGH 16.3 ug/mL (10.0-20.0)
[2017-08-23 14:12] LABS: PLATELET COUNT 151 10x3/uL (130-400)
== END | disposition home or self-care (01) ==
LOC: D.LABREF 12:58
PROVIDERS: Internal Medicine
DX: I33.0 Acute and subacute infective endocarditis (principal); Z51.81 Encounter for therapeutic drug level monitoring; Z79.899 Other long term (current) drug therapy

== ENCOUNTER → 2017-08-30 16:49 | Outpatient (CLI) | payer OTHER ==
[2016-02-18 11:00] VITALS: BMI 31.3
[2017-08-30 18:46] LABS: BASOPHILS 0.5 % (0-2); EOSINOPHILS 7.8 % (0-7); HEMATOCRIT 36.2 % (42.0-54.0); HEMOGLOBIN 12.1 g/dL (13.5-17.5); IMMATURE GRANULOCYTES 0.2 % (0-5); LYMPHOCYTES 21.3 % (15-50); MCH 30.2 pg (26.0-34.0); MCHC 33.4 g/dL (31.0-37.0); MCV 90.3 fL (80.0-100.0); MEAN PLATELET VOLUME 10.8 fL (7.4-10.4); MONOCYTES 6.7 % (2-11); NEUTROPHILS 63.5 % (40-80); PLATELET COUNT 150 10x3/uL (130-400); RBC 4.01 10x6/uL (4.20-6.10); RDW 13.7 % (11.5-14.5); WBC 5.5 10x3/uL (4.8-10.8)
[2017-08-30 19:55] LABS: CALC OSMOLALITY 284 mosm/kg (275-300); CALCIUM 8.3 mg/dL (8.5-10.1); CARBON DIOXIDE 27.5 mmol/L (21.0-32.0); CHLORIDE - SERUM 98 mmol/L (98-107); CREATININE - SERUM 0.9 mg/dL (0.6-1.3); GLUCOSE 320 mg/dL (74-106); POTASSIUM - SERUM 3.5 mmol/L (3.5-5.1); SODIUM 136 mmol/L (136-145); UREA NITROGEN 14 mg/dL (7-18); VANCOMYCIN - TROUGH 10.7 ug/mL (10.0-20.0); eGFR NON AFRICAN AMERICAN 89 mL/min (90-120)
== END | disposition home or self-care (01) ==
LOC: D.LABREF 16:49
PROVIDERS: Internal Medicine
DX: I33.0 Acute and subacute infective endocarditis (principal); Z51.81 Encounter for therapeutic drug level monitoring; Z79.899 Other long term (current) drug therapy; A77.0 Spotted fever due to Rickettsia rickettsii

== ENCOUNTER 2017-09-18 21:04 | Emergency (ER) | payer OTHER ==
[~2017-09-18] VITALS: Ht 177.8 cm; Wt 95.3 kg
[~2017-09-18 21:04] MED LIST changes: -CIPRO500 MG PO; -PLAVIX75 MG PO
[2017-09-18 21:10] VITALS: Ht 177.8 cm; Wt 95.3 kg
[2017-09-18 21:31] LABS: BASOPHILS 0.3 % (0-2); EOSINOPHILS 2.4 % (0-7); HEMATOCRIT 35.8 % (42.0-54.0); IMMATURE GRANULOCYTES 0.4 % (0-5); LYMPHOCYTES 19.4 % (15-50); MCH 29.3 pg (26.0-34.0); MCHC 33.5 g/dL (31.0-37.0); MCV 87.3 fL (80.0-100.0); MEAN PLATELET VOLUME 10.1 fL (7.4-10.4); MONOCYTES 10.2 % (2-11); NEUTROPHILS 67.3 % (40-80); PLATELET COUNT 130 10x3/uL (130-400); RDW 13.2 % (11.5-14.5); WBC 7.2 10x3/uL (4.8-10.8)
[2017-09-18 21:40] LABS: APTT 33.1 SECONDS (22.8-39.4); INR 1.03 (0.85-1.17); PROTIME 13.1 SECONDS (11.6-15.0)
[2017-09-18 21:57] LABS: ALBUMIN 3.4 g/dL (3.4-5.0); ALKALINE PHOSPHATASE 156 U/L (46-116); BILIRUBIN - TOTAL 0.43 mg/dL (0.2-1.3); CALCIUM 8.8 mg/dL (8.5-10.1); CARBON DIOXIDE 26.3 mmol/L (21.0-32.0); CHLORIDE - SERUM 93 mmol/L (98-107); CKMB 12.6 U/L (0.0-3.6); CREATINE KINASE 315 UL (21-232); CREATININE - SERUM 1.5 mg/dL (0.6-1.3); POTASSIUM - SERUM 4.8 mmol/L (3.5-5.1); PRO BNP 69 pg/mL (0-125); PROTEIN - SERUM 7.7 g/dL (6.4-8.2); SODIUM 127 mmol/L (136-145); TROPONIN-I 0.046 ng/mL (0.000-0.060); UREA NITROGEN 24 mg/dL (7-18); eGFR NON AFRICAN AMERICAN 49 mL/min (90-120)
[2017-09-18 22:00] LABS: ALT (SGPT) 26 U/L (10-68); CALC OSMOLALITY 291 mosm/kg (275-300); GLUCOSE 689 mg/dL (74-106)
[2017-09-19] MEDS ORDERED: HYDROCODONE-APA1 TAB PO (01:11)
[2017-09-19 01:58] VITALS: BP 184/81
== END 2017-09-19 01:59 | disposition home or self-care (01) ==
LOC: D.ER 21:04
PROVIDERS: Emergency Medicine
DX: S19.9XXA Unspecified injury of neck, initial encounter (principal); W19.XXXA Unspecified fall, initial encounter; Y93.89 Activity, other specified; Y92.019 Unspecified place in single-family (private) house as the place of occurrence of the external cause; R10.9 Unspecified abdominal pain; H54.8 Legal blindness, as defined in USA; E11.9 Type 2 diabetes mellitus without complications; I10 Essential (primary) hypertension; Z95.0 Presence of cardiac pacemaker; I25.10 Atherosclerotic heart disease of native coronary artery without angina pectoris; J44.9 Chronic obstructive pulmonary disease, unspecified

== ENCOUNTER 2017-09-30 15:02 | Observation (INO) | payer OTHER ==
[~2017-09-30] VITALS: Ht 177.8 cm; Wt 93.2 kg
--- NOTE | ~2017-09-30 | HEMODYNAMI ---
PATIENT:RADHA RAJAN MEDICAL RECORD: [id number] : 46 LOCATION:[address] [id number] ADMISSION DATE: 09/30/17 Generatedon:10/01/201711:19 Patient name: RADHA RAJAN Patient #: [id number] SSN: [id number] : 1950 Date of study: 10/01/2017 Page: Of Hemodynamic Procedure Report Patient Data Patient Demographics Procedure consent was obtained First Name: RADHA Gender: Male Last Name: SATINDER : 1950 Middle Initial: PB Age: 66 year(s) Patient #: [id number] Race: SSN: [id number] Additional ID: [id number] Contact details Address: [address] [place] [address] State: [place] City: [place] Zip code: [address] Past Medical History Allergies: No known allergies Admission Admission Data Admission Date: 09/30/2017 Admission Time: 22:13 Room #: [facility] Lab Results Lab Result Date: 10/01/2017 Lab Result Time: 0:00 Biochemistry Name Units Result Min Max BUN mg/dl 10 --(-*--)-- 7 18 Creatinine mg/dl 1 --(--*-)-- 0.6 1.3 CBC Name Units Result Min Max Hemoglobin g/dl 12.6 -*(----)-- 13.5 17.5 Procedure Procedure Types Cath Procedure Diagnostic Procedure LHC LH w/Coronaries Sedation Charges Moderate Sedation up to 15 minutes PCI Procedure Coronary Stent Coronary Stent Initial PTCA PTCA Additional Procedure Description Procedure Date Procedure Date: 10/01/2017 Procedure Start Time: 11:01 Procedure End Time: 11:17 Procedure Staff Name Function Landon Fitzpatrick MD Performing Physician Edilia Treviño RT Monitor Alan Lacy RT Scrub Ra Little RN Nurse Procedure Data Cath Procedure Fluoroscopy Diagnostic fluoroscopy Total fluoroscopy Time: 2.8 time: 2.8 min min Diagnostic fluoroscopy Total fluoroscopy dose: 712 dose: 712 mGy mGy Contrast Material Contrast Material Type Amount (ml) Isovue 300 102 Entry Location Entry Primary Successful Side Size Upsize Upsize Entry Closure Succes sful Closure Location (Fr) 1 (Fr) 2 (Fr) Remarks Device Remarks Femoral Right 5 Fr 6 Fr Exoseal artery Short Estimated blood loss: 10 ml Diagnostic catheters Device Type Used For End Catheter Placement MULTIPACK Pigtail 5 Fr Procedure catheter MULTIPACK JL 4.0 5Fr Procedure catheter MULTIPACK 3DRC 5Fr Procedure catheter Procedure Complications No complications Procedure Medications Medication Administration Route Dosage Oxygen etCO2 Nasal cannula 2 l/min Heparin Flush Bag added to field 2 bags (1000units/500ml NS) 0.9% NaCl I.V. 100 ml/hr Fentanyl I.V. 100 mcg Versed I.V. 2 mg Fentanyl I.V. 100 mcg Versed I.V. 2 mg Fentanyl I.V. 50 mcg Versed I.V. 1 mg Heparin Bolus I.V. 4000 units Fentanyl I.V. 50 mcg Versed I.V. 1 mg Plavix P.O. 75 mg Hemodynamics Rest HGB: 12.6 (g/dl) Heart Rate: 62 (bpm) Snapshots Pre Cath Intra NCS Post Cath Vital Signs Time Heart Resp SPO2 etCO2 NIBP (mmHg) Rhythm Pain Sedation Rate (ipm) (%) (mmHg) Status Level (bpm) 10:50:56 60 17 94 42.9 150/78(112) NSR 0 (11) 10(A) , No pain 10:56:18 62 18 94 42.9 147/80(122) NSR 0 (11) 10(A) , No pain 11:01:03 61 17 94 51.9 141/78(113) NSR 0 (11) 10(A) , No pain 11:05:49 63 17 94 36.1 144/79(109) NSR 0 (11) 9(A) , No pain 11:10:34 66 17 94 24.8 138/85(108) NSR 0 (11) 9(A) , No pain 11:15:23 68 26 92 49.6 139/78(103) NSR 0 (11) 10(A) , No pain Medications Time Medication Route Dose Verified Delivered Reason Notes Effectiveness by by 10:41:39 Oxygen etCO2 2 Landon Knapp Per physician Nasal l/min Nanette Little RN cannula 10:41:46 Heparin Flush added 2 Landon Ra used for Bag to bags Nanette Little RN procedure (1000units/500ml field NS) 10:41:54 0.9% NaCl I.V. 100 Landon Ra Per physician ml/hr Nanette Little RN 10:52:22 Fentanyl I.V. 100 Landon Ra for sedation mcg Nanette Little RN 10:52:28 Versed I.V. 2 mg Landon Ra for sedation Nanette Little RN 10:56:18 Fentanyl I.V. 100 Landon Ra for sedation mcg Nanette Little RN 10:56:22 Versed I.V. 2 mg Landon Ra for sedation Nanette Little RN 11:01:36 Fentanyl I.V. 50 Landon Ra for sedation mcg Nanette Little RN 11:01:44 Versed I.V. 1 mg Landon Ra for sedation Nanette Little RN 11:06:49 Heparin Bolus I.V. 4000 Landon Ra for units Nanette Little RN anticoagulation 11:11:50 Fentanyl I.V. 50 Landon Ra for sedation mcg Nanette Little RN 11:11:52 Versed I.V. 1 mg Landon Ra for sedation Nanette Little RN 11:14:33 Plavix P.O. 75 mg Landon Ra for Nanette Little RN antiplatelet therapy Procedure Log Time Note 10:24:09 Alan Lacy RT(R) sent for patient. Start room use. 10:24:10 Time tracking: Regular hours (M-F 7:00 - 5:00) 10:24:13 Plan of Care:Hemodynamics will remain stable., Cardiac rhythm will remain stable., Comfort level will be maintained., Respiratory function will remain adequate., Patient/ family verbilizes understanding of procedure., Procedure tolerated without complication., Recovers from procedure without complications.. 10:24:14 Signed procedure consent form obtained from patient. 10:24:22 H&P Date Dictated: 09/30/2017 Within 30 days and on chart., H&P Addendum completed by physician on day of procedure. (MUST COMPLETE FOR ALL OUTPATIENTS). 10:24:33 Patient allergic to No known allergies 10:25:03 Lab Result : BUN 10 mg/dl 10:25:03 Lab Result : Hemoglobin 12.6 g/dl 10:25:03 Lab Result : Creatinine 1 mg/dl 10:39:41 Patient received from Med II to CCL 1 Alert and oriented. Tansferred to table in Supine position. 10:39:43 Warm blankets applied, and reilly hugger turned on for patient comfort. 10:39:44 Correct patient and procedure confirmed by team. 10:39:45 ECG and BP/O2 sat monitors applied to patient. 10:41:39 Oxygen 2 l/min etCO2 Nasal cannula was administered by Ra Little RN; Per physician; 10:41:46 Heparin Flush Bag (1000units/500ml NS) 2 bags added to field was administered by Ra Little RN; used for procedure; 10:41:54 0.9% NaCl 100 ml/hr I.V. was administered by Ra Little RN; Per physician; 10:45:46 Vital chart was started 10:49:27 Baseline sample Acquired. 10:49:31 Rhythm: sinus rhythm 10:49:32 Full Disclosure recording started 10:49:32 Pre-procedure instructions explained to patient. 10:49:33 Pre-op teaching completed and patient verbalized understanding. 10:49:34 Family in patients room. 10:49:37 Patient NPO since Midnight. 10:49:39 Is the patient allergic to Iodine/contrast media? No. 10:49:39 Is patient on blood thinner?Yes 10:49:46 PRE LOADED 10:49:48 Patient diabetic? Yes. 10:49:50 If diabetic: On Metformin? No 10:49:57 Vital chart was stopped 10:49:58 Vital chart was started 10:50:59 Previous problem with sedation/anesthesia? No ? 10:51:00 Snore? Yes 10:51:01 Sleep apnea? Yes 10:51:02 Deviated septum? No 10:51:03 Opens mouth fully? Yes 10:51:04 Sticks out tongue? Yes 10:51:07 Airway obstruction? Yes COPD 10:51:10 Dentures? Yes IN 10:51:14 Pre procedure: right dorsailis pedis pulse 2+ Normal; easily identifiable; not easily obliterated 10:51:17 Patient pain scale 0/10 ?. 10:51:19 IV patent on arrival in left hand with 0.9% NaCl at O. 10:51:21 Lab results completed and on chart. 10:51:24 Right groin area was prepped with chlora-prep and draped in sterile fashion 10:51:25 Alarms reviewed by R. N. 10:51:26 Sharps counted by scrub and verified by R.N. 10:51:27 --------ALL STOP TIME OUT------ 10:51:27 Final Timeout: patient, procedure, and site verified with staff and physician. All members of the team are in agreement. 10:51:29 Right groin site verified by team. 10:51:32 Physical assessment completed. ASA score P 2 - A patient with mild systemic disease as per Landon Fitzpatrick MD. 10:51:35 Sedation plan: IV Moderate Sedation Medication:Versed, Fentanyl 10:52:18 Use device set Femoral Dx 10:52:19 ACIST Syringe (62935) opened to sterile field. 10:52:20 Bag Decanter (2002S) opened to sterile field. 10:52:20 ACIST Hand Control (65377) opened to sterile field. 10:52:21 ACIST Manifold (76645) opened to sterile field. 10:52:22 Fentanyl 100 mcg I.V. was administered by Ra Little RN; for sedation; 10:52:22 Tegaderm 4 x 4 (1626W) opened to sterile field. 10:52:23 Medline Cath Pack ([id number]) opened to sterile field. 10:52:23 DIAGNOSTIC WIRE .035 260cm J wire (827069) opened to sterile field. 10:52:24 DIAGNOSTIC Multipack 5Fr catheter set (GY8363) opened to sterile field. 10:52:25 SHEATH Prelude 5Fr 0.035 (BBX-0Y-32-035) opened to sterile field. 10:52:28 Versed 2 mg I.V. was administered by Ra Little RN; for sedation; 10:56:18 Fentanyl 100 mcg I.V. was administered by Ra Little RN; for sedation; 10:56:22 Versed 2 mg I.V. was administered by Ra Little RN; for sedation; 10:56:29 Zero performed for pressure channel P1 11:01:13 Procedure started. 11:01:25 Local anesthetic to right femoral artery with Lidocaine 2% by Landon Fitzpatrick MD.INITIAL ACCESS ONLY 11:01:36 Fentanyl 50 mcg I.V. was administered by Ra Little RN; for sedation; 11::44 Versed 1 mg I.V. was administered by Ra Little RN; for sedation; 11::41 A 5 Fr sheath was inserted into the Right Femoral artery 11::47 A MULTIPACK Pigtail 5 Fr catheter was advanced over the wire and used for Procedure. 11:03:06 LV gram done using LYONS 11::09 Injector settings: Ml/sec: 10, Volume: 20, 11:03:30 EF : 60 % 11:03:32 Catheter removed. 11:03:40 A MULTIPACK JL 4.0 5Fr catheter was advanced over the wire and used for Procedure. 11:05:01 LCA angiography performed. 11:05:02 Catheter removed. 11:05:10 A MULTIPACK 3DRC 5Fr catheter was advanced over the wire and used for Procedure. 11:05:16 SHEATH 6FR Bally (KCT818) opened to sterile field. 11:05:20 CHOICE PT Extra Support 182cm wire ([id number]) opened to sterile field. 11:05:56 RCA angiography performed. 11:05:57 Catheter removed. 11:06:27 Sheath upsized to a 6 Fr Short. 11:06:49 Heparin Bolus 4000 units I.V. was administered by Ra Little RN; for anticoagulation; 11:07:20 GUIDE 6FR EBU 4.0 guide catheter (WC3FTL98) opened to sterile field. 11:07:26 6 Fr EBU 4 guide catheter was inserted over the wire 11:08:03 CHOICE ES 182 wire advanced. 11:08:35 Wire advanced across lesion. 11:09:34 Place stent Inflation Number: 1 A DANIEL RX 2.5 x 08 stent ([id number]) was prepped and advanced across the 1st Diag. The stent was deployed at 13 MELISA for 0:10 (min:sec). 11:09:46 Wire redirected to LAD. 11:10:32 Inflation number: 1 The stent balloon was then re-inflated across the Mid LAD to 13 MELISA for 0:15 (min:sec). 11:11:03 Stent catheter was removed intact over wire. 11:11:04 Wire removed. 11:11:05 Guide catheter removed. 11:11:11 EXOSEAL 6Fr (EX600) opened to sterile field. 11:11:50 Fentanyl 50 mcg I.V. was administered by Ra Little RN; for sedation; 11:11:52 Versed 1 mg I.V. was administered by Ra Little RN; for sedation; 11:12:02 Sheath removed intact; hemostasis achieved with Exoseal to the Right Femoral artery. 11:12:04 Procedure ended.(Physican Out) 11:12:16 Fluoroscopy time 02.80 minutes. 11:12:20 Fluoroscopy dose: 712 mGy 11:12:20 Flurop Dose total: 712 11:13:14 Contrast amount:Isovue 300 102ml. 11:13:16 Sharps counted by scrub and verified by R.N. 11:13:20 Post-op/insertion site Right Femoral artery dressed using a 4 x 4 and Tegaderm. 11:13:24 Post right femoral artery:stable, soft, clean and dry 11:13:27 Post-procedure physical assessment completed. ASA score P 2 - A patient with mild systemic disease as per Landon Fitzpatrick MD. 11:13:31 Post procedure rhythm: sinus rhythm 11:13:33 Estimated blood loss: 10 ml 11:13:34 Post procedure instruction explained to patient.Patient verbalizes understanding. 11:13:34 Patient needs reinforcement of post procedure teaching. 11:14:33 Plavix 75 mg P.O. was administered by Ra Little RN; for antiplatelet therapy; 11:14:36 Procedure type changed to Cath procedure, Diagnostic procedure, LHC, LHC w/Coronaries, Sedation Charges, Moderate Sedation up to 15 minutes, PCI procedure, Coronary Stent, Coronary Stent Initial, PTCA, PTCA Additional 11:17:03 Procedure and supply charges have been captured, reviewed, submitted and are correct. 11:17:06 Procedure Complication : No complications 11:17:09 See physician's report for complete and final results. 11:17:31 Report given to PCU. 11:17:33 Patient transfered to PCU with Bed. 11:17:35 Procedure ended. 11:17:35 Full Disclosure recording stopped 11:17:40 End room use (Document Last) 11:19:28 Vital chart was stopped Intervention Summary Intervention Notes Time ActionType Lesion and Equipment Used Action# Pressure Duration Attributes 11:09:34 Place stent 1st Diag DANIEL RX 2.5 x 1 13 00:10 08 stent ([id number]) 11:10:32 Reinflate Mid LAD DANIEL RX 2.5 x 1 13 00:15 stent 08 stent balloon ([id number]) Device Usage Item Name Manufacture Quantity Catalog Number Hospital Part Current Minimal Lot# / Charge Number Stock Stock Serial# Code ACIST Syringe Acist 1 14444 000460 166991 912875 20 (65682) Medical Systems Alt[employer] Bag Decanter Microtek 1 2001S 127026 35597 364838 5 (2001S) Medical Inc. ACIST Hand Acist 1 72857 781844 184983 625185 5 Control (54009) Medical Systems Inc ACIST Manifold Acist 1 77353 096915 057133 255425 5 (38069) Medical [employer] Tegaderm 4 x 4 3M 1 1626W 378930 296478 158887 5 (1626W) Medline Cath Cardinal 1 [id number] 867464 42207 361724 5 Soundl.ly Health ([id number]) DIAGNOSTIC WIRE St Alvaro 1 480937 275702 240125 833134 30 .035 260cm J wire (335901) DIAGNOSTIC Cardinal 1 KV7753 413756 50799 216623 30 Multipack 5Fr Health catheter set (EQ5482) SHEATH Prelude Merit 1 IIQ-5C-98-035 942943 908650 578909 5 5Fr 0.035 Medical (SMW-8F-85-035) MULTIPACK Cardinal 1 771111 5 Pigtail 5 Fr Health catheter MULTIPACK JL Cardinal 1 385193 5 4.0 5Fr Health catheter MULTIPACK 3DRC Cardinal 1 868743 5 5Fr catheter Health SHEATH 6FR Terumo 1 GDU308 440187 745749 385600 40 Bally (IZC300) CHOICE PT Extra Hawkeye 1 [id number] 552931 564591 527404 5 Support 182cm Scientific wire ([id number]) GUIDE 6FR EBU Medtronic 1 SS0BYX14 959426 76069 111600 1 4.0 guide catheter (UF1LOB02) DANIEL RX 2.5 x Medtronic 1 [id number] 246070 1654710 695469 5 [id number] 08 stent ([id number]) EXOSEAL 6Fr Cardinal 1 EX600 868393 420553 525111 10 (EX600) Health Signature Audit [place] Stage Time Signature Unsigned Intra-Procedure 10/01/2017 Edilia Treviño 11:19:25 AM RT(R) Signatures Monitor : Edilia Treviño Signature : RT Date : Time : [address] [place] [address]
--- NOTE | ~2017-09-30 | DS ---
PATIENT:RADHA KEATING :46 MEDICAL RECORD: [id number] DISCHARGE SUMMARY ADMISSION DATE: 09/30/17 DISCHARGE DATE: 10/01/17 DIAGNOSES: 1. Unstable angina. 2. Coronary artery disease. 3. Percutaneous transluminal coronary angioplasty stent left anterior descending this admission. 4. Chronic obstructive pulmonary disease. 5. Sick sinus syndrome. 6. Status post pacemaker. 7. Hypertension. 8. Hyperlipidemia. HOSPITAL COURSE: Mr. Keating presents with unstable anginal symptomatology, found to have significant disease of the LAD, diagonal and underwent successful PTCA stent of the LAD diagonal. Discharged home with the addition of aspirin and Plavix to his medical regimen. He will follow up with [facility] in 1 month. TRANSINT:[id number] Voice Confirmation ID: [id number] DOCUMENT ID: [id number] CECIL COWAN MD at 1834 CC: [id number] DICTATION DATE: 10/01/17 1116 MACHINE RECORDS UNITS SUPERVISOR: 10/01/17 1148 DIS IN 10/01/17 [address] [place] [address]
--- NOTE | ~2017-09-30 | OP ---
PATIENT NAME: RADHA RAJAN MEDICAL RECORD: [id number] :46 LOCATION:D.M2 D.2128 ADMISSION DATE:09/30/17 SURGEON: CECIL COWAN MD DATE OF OPERATION: 10/01/2017 PROCEDURES: 1. PTCA stent LAD diagonal. 2. PTCA, LAD. 3. Left heart catheterization. 4. Selective coronary angiography. 5. Left ventriculogram. INDICATION: Angina and coronary artery disease. PROCEDURE IN DETAIL: After informed consent was obtained and after a detailed description of risks, benefits as well as alternative therapies, the patient elected to proceed with angiogram and angioplasty. The right femoral area was prepped and draped in normal sterile fashion. Right femoral artery was cannulated via modified Seldinger technique with placement of 6-Albanian sheath. All catheters exchanged through this sheath. FINDINGS: The left ventriculogram was performed in standard 30-degree LYONS view, reveals good cardiac wall motion throughout all segments. Overall ejection fraction estimated 60%. SELECTIVE CORONARY ANGIOGRAPHY: 1. Left main showed no significant angiographic disease. 2. Left anterior descending has moderate irregularities, but no flow-limiting stenosis; however, there is a relatively large diagonal system. The diagonal has 80% to 85% stenosis at the ostium. 3. The left circumflex has moderate irregularities, but no flow-limiting stenosis. 4. Right coronary artery has moderate irregularities, but no flow-limiting stenosis. PTCA STENT OF THE LAD DIAGONAL: The stent used was a 2.5 x 8 mm Hamlin. This caused plaque shift into the LAD itself. The LAD was ballooned with a stent balloon. Result was 0% residual stenosis. OVERALL IMPRESSION: Successful percutaneous transluminal coronary angioplasty stent of the left anterior descending diagonal going from 85% initial stenosis to 0% residual. TRANSINT:[id number] Voice Confirmation ID: [id number] DOCUMENT ID: [id number] CECIL COWAN MD at 1834 CC: [id number] DICTATION DATE: 10/01/17 1118 ACCESS CLINICIAN: 10/01/17 1135 DIS IN 10/01/17 [address] [place] [address]
[2017-09-30 15:31] VITALS: BP 129/85
[2017-09-30 15:50] LABS: BASOPHILS 0.4 % (0-2); HEMATOCRIT 35.9 % (42.0-54.0); HEMOGLOBIN 11.9 g/dL (13.5-17.5); IMMATURE GRANULOCYTES 0.1 % (0-5); LYMPHOCYTES 18.2 % (15-50); MCH 28.8 pg (26.0-34.0); MCHC 33.1 g/dL (31.0-37.0); MCV 86.9 fL (80.0-100.0); MEAN PLATELET VOLUME 9.8 fL (7.4-10.4); NEUTROPHILS 70.3 % (40-80); PLATELET COUNT 166 10x3/uL (130-400); RBC 4.13 10x6/uL (4.20-6.10); RDW 12.8 % (11.5-14.5); WBC 6.7 10x3/uL (4.8-10.8)
[2017-09-30 16:00] VITALS: BP 124/67
[2017-09-30 16:02] LABS: KETONE - SERUM NEGATIVE (NEGATIVE)
[2017-09-30 16:06] LABS: INR 0.98 (0.85-1.17); PROTIME 12.6 SECONDS (11.6-15.0)
[2017-09-30 16:07] LABS: APTT 35.7 SECONDS (22.8-39.4)
[2017-09-30 16:08] LABS: D-DIMER-QUANTITATIVE 0.47 ug/mLFEU (0.20-0.54)
[2017-09-30 16:25] LABS: AMYLASE - SERUM 36 U/L (25-115); CKMB 0.8 U/L (0.0-3.6); CREATINE KINASE 93 UL (21-232); PRO BNP 77 pg/mL (0-125); THYROID STIMULATING HORMONE 1.25 uIU/mL (0.36-3.74)
[2017-09-30 16:28] LABS: TROPONIN-I 0.076 ng/mL (0.000-0.060)
[2017-09-30 17:00] VITALS: BP 125/69
[2017-09-30 17:34] LABS: COLOR DK YELLOW (YELLOW)
[2017-09-30 17:35] LABS: APPEARANCE CLEAR (CLEAR); BILIRUBIN NEGATIVE (NEGATIVE); GLUCOSE 50 mg/dL (NEGATIVE); KETONE NEGATIVE (NEGATIVE); NITRITE NEGATIVE (NEGATIVE); PROTEIN TRACE mg/dL (NEGATIVE); SPECIFIC GRAVITY 1.025 (1.005-1.020); UROBILINOGEN NORMAL (NORMAL)
[2017-09-30 17:47] LABS: ALBUMIN 3.3 g/dL (3.4-5.0); ALKALINE PHOSPHATASE 154 U/L (46-116); ALT (SGPT) 22 U/L (10-68); BILIRUBIN - TOTAL 0.34 mg/dL (0.2-1.3); CALC OSMOLALITY 288 mosm/kg (275-300); CALCIUM 8.8 mg/dL (8.5-10.1); CARBON DIOXIDE 28.6 mmol/L (21.0-32.0); CHLORIDE - SERUM 102 mmol/L (98-107); CREATININE - SERUM 1.2 mg/dL (0.6-1.3); GLUCOSE 303 mg/dL (74-106); MAGNESIUM - SERUM 2.2 mg/dL (1.8-2.4); POTASSIUM - SERUM 3.7 mmol/L (3.5-5.1); PROTEIN - SERUM 7.4 g/dL (6.4-8.2); SODIUM 139 mmol/L (136-145); UREA NITROGEN 12 mg/dL (7-18); eGFR NON AFRICAN AMERICAN 64 mL/min (90-120)
[2017-09-30 18:00] VITALS: BP 121/67
[2017-09-30 21:36] LABS: CKMB 1.3 U/L (0.0-3.6); CREATINE KINASE 94 UL (21-232)
[2017-09-30 21:43] LABS: TROPONIN-I 0.082 ng/mL (0.000-0.060)
[2017-10-01 02:20] VITALS: BP 141/61; BMI 29.4
[2017-10-01 05:14] LABS: BASOPHILS 0.3 % (0-2); EOSINOPHILS 3.9 % (0-7); HEMATOCRIT 39.2 % (42.0-54.0); HEMOGLOBIN 12.6 g/dL (13.5-17.5); IMMATURE GRANULOCYTES 0.2 % (0-5); LYMPHOCYTES 21.2 % (15-50); MCH 28.4 pg (26.0-34.0); MCHC 32.1 g/dL (31.0-37.0); MCV 88.3 fL (80.0-100.0); MONOCYTES 7.9 % (2-11); NEUTROPHILS 66.5 % (40-80); PLATELET COUNT 187 10x3/uL (130-400); RBC 4.44 10x6/uL (4.20-6.10); RDW 12.9 % (11.5-14.5); WBC 6.6 10x3/uL (4.8-10.8)
[2017-10-01 05:34] VITALS: BP 146/76
[2017-10-01 05:44] LABS: ALBUMIN 3.4 g/dL (3.4-5.0); ALKALINE PHOSPHATASE 126 U/L (46-116); ALT (SGPT) 25 U/L (10-68); BILIRUBIN - TOTAL 0.28 mg/dL (0.2-1.3); CALCIUM 8.7 mg/dL (8.5-10.1); CARBON DIOXIDE 31.1 mmol/L (21.0-32.0); CHLORIDE - SERUM 104 mmol/L (98-107); POTASSIUM - SERUM 3.7 mmol/L (3.5-5.1); PROTEIN - SERUM 7.6 g/dL (6.4-8.2); SODIUM 141 mmol/L (136-145); UREA NITROGEN 10 mg/dL (7-18); eGFR NON AFRICAN AMERICAN 79 mL/min (90-120)
[2017-10-01 05:47] LABS: CALC OSMOLALITY 282 mosm/kg (275-300); GLUCOSE 144 mg/dL (74-106); TROPONIN-I 0.085 ng/mL (0.000-0.060)
[2017-10-01 08:26] VITALS: BP 142/69
[2017-10-01 08:30] VITALS: Ht 177.8 cm; Wt 93.2 kg
[2017-10-01 09:49] LABS: BASOPHILS 0.5 % (0-2); EOSINOPHILS 3.9 % (0-7); HEMATOCRIT 39.2 % (42.0-54.0); HEMOGLOBIN 12.4 g/dL (13.5-17.5); IMMATURE GRANULOCYTES 0.2 % (0-5); LYMPHOCYTES 21.9 % (15-50); MCH 28.2 pg (26.0-34.0); MCHC 31.6 g/dL (31.0-37.0); MCV 89.3 fL (80.0-100.0); MONOCYTES 9.2 % (2-11); NEUTROPHILS 64.3 % (40-80); PLATELET COUNT 189 10x3/uL (130-400); RBC 4.39 10x6/uL (4.20-6.10); RDW 13.1 % (11.5-14.5); WBC 6.4 10x3/uL (4.8-10.8)
[2017-10-01] MEDS ORDERED: PLAVIX75 MG PO (14:01)
[2017-10-01] MEDS ORDERED: CIPRO500 MG PO (14:02)
[2017-10-01 16:00] VITALS: BP 153/60
== END 2017-10-01 18:02 | disposition home or self-care (01) ==
LOC: D.ER 15:02 → OBSVTIME 22:13 → D.M2 22:13 → D.EDHOLD 22:13 → D.M2 22:28
PROVIDERS: Family Medicine; Internal Medicine Interventional Cardiology
DX: I21.4 Non-ST elevation (NSTEMI) myocardial infarction (principal); I25.110 Atherosclerotic heart disease of native coronary artery with unstable angina pectoris; I49.5 Sick sinus syndrome; Z95.0 Presence of cardiac pacemaker; E78.5 Hyperlipidemia, unspecified; J44.9 Chronic obstructive pulmonary disease, unspecified; I10 Essential (primary) hypertension; N40.0 Benign prostatic hyperplasia without lower urinary tract symptoms; Z01.812 Encounter for preprocedural laboratory examination

== ENCOUNTER 2017-10-17 16:20 | Emergency (ER) | payer OTHER ==
[~2017-10-17] VITALS: Ht 177.8 cm; Wt 93.2 kg
[~2017-10-17 16:20] MED LIST changes: +CIPRO500 MG PO; +PLAVIX75 MG PO
[2017-10-17 16:21] VITALS: Ht 177.8 cm; Wt 93.2 kg
[2017-10-17 17:20] LABS: BASOPHILS 0.5 % (0-2); EOSINOPHILS 3.6 % (0-7); HEMATOCRIT 39.4 % (42.0-54.0); HEMOGLOBIN 13.1 g/dL (13.5-17.5); IMMATURE GRANULOCYTES 0.2 % (0-5); LYMPHOCYTES 19.9 % (15-50); MCH 28.7 pg (26.0-34.0); MCHC 33.2 g/dL (31.0-37.0); MCV 86.4 fL (80.0-100.0); MEAN PLATELET VOLUME 10.3 fL (7.4-10.4); NEUTROPHILS 65.8 % (40-80); RBC 4.56 10x6/uL (4.20-6.10); RDW 12.8 % (11.5-14.5); WBC 5.5 10x3/uL (4.8-10.8)
[2017-10-17 17:21] LABS: PLATELET COUNT 139 10x3/uL (130-400)
[2017-10-17 17:34] LABS: ALBUMIN 3.6 g/dL (3.4-5.0); ALKALINE PHOSPHATASE 112 U/L (46-116); ALT (SGPT) 24 U/L (10-68); BILIRUBIN - TOTAL 0.38 mg/dL (0.2-1.3); CALC OSMOLALITY 281 mosm/kg (275-300); CALCIUM 9.2 mg/dL (8.5-10.1); CARBON DIOXIDE 31.6 mmol/L (21.0-32.0); CHLORIDE - SERUM 99 mmol/L (98-107); CREATININE - SERUM 1.3 mg/dL (0.6-1.3); POTASSIUM - SERUM 4.8 mmol/L (3.5-5.1); PROTEIN - SERUM 7.9 g/dL (6.4-8.2); SODIUM 133 mmol/L (136-145); UREA NITROGEN 22 mg/dL (7-18); eGFR NON AFRICAN AMERICAN 58 mL/min (90-120)
[2017-10-17 17:35] LABS: GLUCOSE 326 mg/dL (74-106)
[2017-10-17 17:51] LABS: CKMB 0.9 U/L (0.0-3.6); CREATINE KINASE 77 UL (21-232); PRO BNP 34 pg/mL (0-125); TROPONIN-I 0.054 ng/mL (0.000-0.060)
[2017-10-17] MEDS ORDERED: HYDROCODONE-APA1 TAB PO (18:49)
[2017-10-17 19:26] VITALS: BP 125/71
== END 2017-10-17 19:27 | disposition home or self-care (01) ==
LOC: D.ER 16:20
PROVIDERS: Emergency Medicine
DX: R07.9 Chest pain, unspecified (principal); Z86.79 Personal history of other diseases of the circulatory system; E11.8 Type 2 diabetes mellitus with unspecified complications; I11.0 Hypertensive heart disease with heart failure; I50.9 Heart failure, unspecified; R06.02 Shortness of breath; Z95.0 Presence of cardiac pacemaker

== ENCOUNTER 2017-11-09 13:17 | Emergency (ER) | payer OTHER ==
[~2017-11-09] VITALS: Ht 177.8 cm; Wt 93.2 kg
[2017-11-09 13:25] VITALS: BP 94/56; Ht 177.8 cm; Wt 93.2 kg
== END 2017-11-09 14:35 | disposition left against medical advice (07) ==
LOC: D.ER 13:17
DX: R07.9 Chest pain, unspecified (principal); R50.9 Fever, unspecified

== ENCOUNTER 2017-11-17 20:49 | Emergency (ER) | payer OTHER ==
[~2017-11-17] VITALS: Ht 177.8 cm; Wt 90.9 kg
[2017-11-17 20:55] VITALS: Ht 177.8 cm; Wt 90.9 kg
[2017-11-17 21:41] LABS: BASOPHILS 0.3 % (0-2); EOSINOPHILS 1.5 % (0-7); HEMATOCRIT 35.2 % (42.0-54.0); HEMOGLOBIN 11.6 g/dL (13.5-17.5); IMMATURE GRANULOCYTES 0.3 % (0-5); LYMPHOCYTES 16.8 % (15-50); MCH 28.3 pg (26.0-34.0); MCV 85.9 fL (80.0-100.0); MONOCYTES 11.7 % (2-11); NEUTROPHILS 69.4 % (40-80); RDW 13.3 % (11.5-14.5); WBC 5.8 10x3/uL (4.8-10.8)
[2017-11-17 21:53] LABS: PLATELET COUNT 188 10x3/uL (130-400)
[2017-11-17 21:55] LABS: INR 1.08 (0.85-1.17); PROTIME 13.6 SECONDS (11.6-15.0)
[2017-11-17 21:56] LABS: APTT 39.8 SECONDS (22.8-39.4)
[2017-11-17 22:00] LABS: ALBUMIN 3.4 g/dL (3.4-5.0); ALKALINE PHOSPHATASE 86 U/L (46-116); ALT (SGPT) 21 U/L (10-68); BILIRUBIN - TOTAL 0.27 mg/dL (0.2-1.3); CALC OSMOLALITY 273 mosm/kg (275-300); CALCIUM 9.3 mg/dL (8.5-10.1); CARBON DIOXIDE 24.7 mmol/L (21.0-32.0); CHLORIDE - SERUM 101 mmol/L (98-107); CREATININE - SERUM 1.4 mg/dL (0.6-1.3); POTASSIUM - SERUM 5.2 mmol/L (3.5-5.1); PROTEIN - SERUM 8.8 g/dL (6.4-8.2); SODIUM 133 mmol/L (136-145); UREA NITROGEN 24 mg/dL (7-18); eGFR NON AFRICAN AMERICAN 53 mL/min (90-120)
[2017-11-17 22:01] LABS: GLUCOSE 176 mg/dL (74-106)
[2017-11-17 22:17] LABS: CKMB 0.7 U/L (0.0-3.6); CREATINE KINASE 104 UL (21-232); THYROID STIMULATING HORMONE 0.76 uIU/mL (0.36-3.74); TROPONIN-I 0.043 ng/mL (0.000-0.060)
[2017-11-17 22:47] LABS: APPEARANCE CLEAR (CLEAR); BILIRUBIN NEGATIVE (NEGATIVE); COLOR YELLOW (YELLOW); GLUCOSE NEGATIVE (NEGATIVE); KETONE NEGATIVE (NEGATIVE); NITRITE NEGATIVE (NEGATIVE); PROTEIN NEGATIVE (NEGATIVE); UROBILINOGEN NORMAL (NORMAL)
[2017-11-18 01:10] LABS: UDS - AMPHET NEGATIVE QUAL (NEGATIVE); UDS - BARB NEGATIVE QUAL (NEGATIVE); UDS - BENZO POSITIVE QUAL (NEGATIVE); UDS - COCAINE NEGATIVE QUAL (NEGATIVE); UDS - OPIATE POSITIVE QUAL (NEGATIVE); UDS - PCP NEGATIVE QUAL (NEGATIVE); UDS - THC NEGATIVE QUAL (NEGATIVE)
[2017-11-18] MEDS ORDERED: CLEOCIN HCL300 MG PO (04:07)
[2017-11-18] MEDS ORDERED: KEFLEX500 MG PO (04:07)
[2017-11-18 04:19] VITALS: BP 132/76
== END 2017-11-18 04:18 | disposition home or self-care (01) ==
LOC: D.ER 20:49
PROVIDERS: Family Medicine
DX: R53.81 Other malaise (principal); R53.83 Other fatigue; L03.90 Cellulitis, unspecified; R53.1 Weakness; E11.9 Type 2 diabetes mellitus without complications; I10 Essential (primary) hypertension; J44.9 Chronic obstructive pulmonary disease, unspecified; K21.9 Gastro-esophageal reflux disease without esophagitis; N42.9 Disorder of prostate, unspecified

== ENCOUNTER 2018-03-06 17:48 | Emergency (ER) | payer OTHER ==
[~2018-03-06] VITALS: Ht 177.8 cm; Wt 89.1 kg
[~2018-03-06 17:48] MED LIST changes: +CLEOCIN HCL300 MG PO; +KEFLEX500 MG PO
[2018-03-06 17:50] VITALS: Ht 177.8 cm; Wt 89.1 kg
[2018-03-06 18:48] LABS: BASOPHILS 0.3 % (0-2); EOSINOPHILS 1.3 % (0-7); HEMATOCRIT 27.4 % (42.0-54.0); HEMOGLOBIN 9.2 g/dL (13.5-17.5); IMMATURE GRANULOCYTES 0.3 % (0-5); MCHC 33.6 g/dL (31.0-37.0); MCV 89.3 fL (80.0-100.0); MEAN PLATELET VOLUME 9.7 fL (7.4-10.4); NEUTROPHILS 81.1 % (40-80); PLATELET COUNT 58 10x3/uL (130-400); RBC 3.07 10x6/uL (4.20-6.10); RDW 15.1 % (11.5-14.5)
[2018-03-06 18:52] LABS: C-REACTIVE PROTEIN 2.4 mg/dL (0.0-0.9); CKMB 0.9 U/L (0.0-3.6); CREATINE KINASE 190 UL (21-232); MAGNESIUM - SERUM 1.2 mg/dL (1.8-2.4)
[2018-03-06 18:58] LABS: APPEARANCE CLEAR (CLEAR); BILIRUBIN NEGATIVE (NEGATIVE); COLOR YELLOW (YELLOW); GLUCOSE NEGATIVE (NEGATIVE); KETONE NEGATIVE (NEGATIVE); NITRITE NEGATIVE (NEGATIVE); PROTEIN NEGATIVE (NEGATIVE); SPECIFIC GRAVITY 1.005 (1.005-1.020); UROBILINOGEN NORMAL (NORMAL)
[2018-03-06 19:01] LABS: BACTERIA FEW /hpf (NONE SEEN); RED CELLS - URINE 0-5 /hpf (0-5); WHITE CELLS - URINE RARE /hpf (0-5)
[2018-03-06 19:08] LABS: PLATELET ESTIMATE DECREASED
[2018-03-06 19:16] LABS: TROPONIN-I 0.261 ng/mL (0.000-0.060)
[2018-03-06 19:43] LABS: ALBUMIN 3.3 g/dL (3.4-5.0); ANION GAP 13.5 mmol/L (8-16); BILIRUBIN - TOTAL 0.47 mg/dL (0.2-1.3); CARBON DIOXIDE 26.7 mmol/L (21.0-32.0); CREATININE - SERUM 1.3 mg/dL (0.6-1.3); POTASSIUM - SERUM 4.2 mmol/L (3.5-5.1)
[2018-03-06 23:23] VITALS: BP 109/54
== END 2018-03-07 00:19 | disposition other institution (70) ==
LOC: D.ER 17:48
PROVIDERS: Emergency Medicine
DX: R07.9 Chest pain, unspecified (principal); E11.9 Type 2 diabetes mellitus without complications; I10 Essential (primary) hypertension; J44.9 Chronic obstructive pulmonary disease, unspecified

== ENCOUNTER 2018-04-28 14:49 | Emergency (ER) | payer OTHER ==
[~2018-04-28] VITALS: Ht 177.8 cm; Wt 96.8 kg
[2018-04-28 14:51] VITALS: Ht 177.8 cm; Wt 96.8 kg
[2018-04-28 15:42] LABS: BASOPHILS 0.4 % (0-2); EOSINOPHILS 0.7 % (0-7); HEMATOCRIT 22.7 % (42.0-54.0); IMMATURE GRANULOCYTES 0.4 % (0-5); LYMPHOCYTES 13.8 % (15-50); MCH 30.7 pg (26.0-34.0); MCHC 32.2 g/dL (31.0-37.0); MCV 95.4 fL (80.0-100.0); MEAN PLATELET VOLUME 11.2 fL (7.4-10.4); MONOCYTES 4.4 % (2-11); NEUTROPHILS 80.3 % (40-80); RBC 2.38 10x6/uL (4.20-6.10); RDW 21.6 % (11.5-14.5); WBC 2.8 10x3/uL (4.8-10.8)
[2018-04-28 15:47] LABS: HEMOGLOBIN 7.3 g/dL (13.5-17.5); PLATELET COUNT 115 10x3/uL (130-400)
[2018-04-28 15:54] LABS: APTT 36.4 SECONDS (22.8-39.4); INR 1.2 (0.85-1.17); PROTIME 14.7 SECONDS (11.6-15.0)
[2018-04-28 15:56] LABS: APPEARANCE CLEAR (CLEAR); BILIRUBIN NEGATIVE (NEGATIVE); COLOR YELLOW (YELLOW); GLUCOSE NEGATIVE (NEGATIVE); KETONE NEGATIVE (NEGATIVE); NITRITE NEGATIVE (NEGATIVE); PROTEIN NEGATIVE (NEGATIVE); UROBILINOGEN NORMAL (NORMAL)
[2018-04-28 16:01] LABS: ALBUMIN 2.7 g/dL (3.4-5.0); ALKALINE PHOSPHATASE 202 U/L (46-116); ALT (SGPT) 36 U/L (10-68); BILIRUBIN - TOTAL 0.54 mg/dL (0.2-1.3); CALC OSMOLALITY 291 mosm/kg (275-300); CALCIUM 7.9 mg/dL (8.5-10.1); CHLORIDE - SERUM 106 mmol/L (98-107); GLUCOSE 258 mg/dL (74-106); POTASSIUM - SERUM 4.3 mmol/L (3.5-5.1); PROTEIN - SERUM 6.1 g/dL (6.4-8.2); SODIUM 138 mmol/L (136-145); UREA NITROGEN 33 mg/dL (7-18); eGFR NON AFRICAN AMERICAN 79 mL/min (90-120)
[2018-04-28 16:07] LABS: KETONE - SERUM NEGATIVE (NEGATIVE)
[2018-04-28 16:22] LABS: CKMB 2.5 U/L (0.0-3.6); CREATINE KINASE 51 UL (21-232); MAGNESIUM - SERUM 2.1 mg/dL (1.8-2.4); PRO BNP 3285 pg/mL (0-125)
[2018-04-28 16:25] LABS: TROPONIN-I 1.344 ng/mL (0.000-0.060)
[2018-04-28 19:00] VITALS: BP 163/69
== END 2018-04-28 19:00 | disposition other institution (70) ==
LOC: D.ER 14:49
PROVIDERS: Family Medicine
DX: R41.82 Altered mental status, unspecified (principal); D64.9 Anemia, unspecified; F41.9 Anxiety disorder, unspecified; R44.3 Hallucinations, unspecified; I10 Essential (primary) hypertension; D72.819 Decreased white blood cell count, unspecified

== ENCOUNTER 2018-05-07 17:41 | Emergency (ER) | payer OTHER ==
[~2018-05-07] VITALS: Ht 177.8 cm; Wt 90.9 kg
[2018-05-07 17:49] VITALS: Ht 177.8 cm; Wt 90.9 kg
[2018-05-07 18:46] LABS: BASOPHILS 2.7 % (0-2); HEMATOCRIT 25.2 % (42.0-54.0); HEMOGLOBIN 8.2 g/dL (13.5-17.5); IMMATURE GRANULOCYTES 1.3 % (0-5); MCH 31.8 pg (26.0-34.0); MCHC 32.5 g/dL (31.0-37.0); MCV 97.7 fL (80.0-100.0); MEAN PLATELET VOLUME 9.9 fL (7.4-10.4); RBC 2.58 10x6/uL (4.20-6.10); RDW 21.7 % (11.5-14.5)
[2018-05-07 18:47] LABS: PLATELET COUNT 261 10x3/uL (130-400)
[2018-05-07 18:54] LABS: APTT 34.3 SECONDS (22.8-39.4); INR 1.07 (0.85-1.17); PROTIME 13.4 SECONDS (11.6-15.0)
[2018-05-07 20:10] LABS: ALBUMIN 2.6 g/dL (3.4-5.0); ALKALINE PHOSPHATASE 239 U/L (46-116); ALT (SGPT) 35 U/L (10-68); BILIRUBIN - TOTAL 0.49 mg/dL (0.2-1.3); CALC OSMOLALITY 291 mosm/kg (275-300); CALCIUM 7.2 mg/dL (8.5-10.1); CHLORIDE - SERUM 105 mmol/L (98-107); CKMB 1.8 U/L (0.0-3.6); CREATINE KINASE 53 UL (21-232); CREATININE - SERUM 0.8 mg/dL (0.6-1.3); GLUCOSE 329 mg/dL (74-106); MAGNESIUM - SERUM 1.7 mg/dL (1.8-2.4); POTASSIUM - SERUM 4.1 mmol/L (3.5-5.1); PROTEIN - SERUM 5.8 g/dL (6.4-8.2); SODIUM 139 mmol/L (136-145); UREA NITROGEN 15 mg/dL (7-18); eGFR NON AFRICAN AMERICAN > 90 mL/min (90-120)
[2018-05-07 20:58] VITALS: BP 134/68
== END 2018-05-07 20:46 | disposition left against medical advice (07) ==
LOC: D.ER 17:41
PROVIDERS: Emergency Medicine
DX: I50.9 Heart failure, unspecified (principal); M54.9 Dorsalgia, unspecified; R60.0 Localized edema

== ENCOUNTER 2018-08-05 09:01 | Inpatient (IN) | payer MEDICARE ==
[~2018-08-05] VITALS: Ht 177.8 cm; Wt 90.9 kg
[2018-08-05] MEDS ORDERED: CHEMO (09:10)
[2018-08-05 09:42] LABS: HEMATOCRIT 32.1 % (42.0-54.0); HEMOGLOBIN 10.1 g/dL (13.5-17.5); MCH 27.8 pg (26.0-34.0); MCHC 31.5 g/dL (31.0-37.0); MCV 88.4 fL (80.0-100.0); MEAN PLATELET VOLUME 9.9 fL (7.4-10.4); PLATELET COUNT 109 10x3/uL (130-400); RBC 3.63 10x6/uL (4.20-6.10); RDW 15.6 % (11.5-14.5); WBC 2.3 10x3/uL (4.8-10.8)
--- NOTE | 2018-08-05 09:56 | NUR ---
PT CONTINUES TO REQUEST IV PAIN MEDICATION, PT HAS MADE THIS REQUEST AT LEAST 5 TIMES SINCE THIS NURSE INITIALLY ENTERED PT'S ROOM TO ASSESS PT.
[2018-08-05 10:00] VITALS: BP 128/69
[2018-08-05 10:12] LABS: ALBUMIN 2.9 g/dL (3.4-5.0); ALKALINE PHOSPHATASE 182 U/L (46-116); ALT (SGPT) 15 U/L (10-68); BILIRUBIN - TOTAL 0.49 mg/dL (0.2-1.3); CALC OSMOLALITY 285 mosm/kg (275-300); CALCIUM 8.7 mg/dL (8.5-10.1); CARBON DIOXIDE 26.5 mmol/L (21.0-32.0); CHLORIDE - SERUM 106 mmol/L (98-107); GLUCOSE 152 mg/dL (74-106); POTASSIUM - SERUM 4.1 mmol/L (3.5-5.1); PROTEIN - SERUM 6.9 g/dL (6.4-8.2); SODIUM 142 mmol/L (136-145); UREA NITROGEN 12 mg/dL (7-18); eGFR NON AFRICAN AMERICAN 79 mL/min (90-120)
--- NOTE | 2018-08-05 10:13 | NUR ---
WHEN THIS NURSE WAS ADMINISTERING ORDERED MORPHINE FOR TREATMENT OF PT'S PAIN, PT QUESTIONED HOW MANY MILLIGRAMS HE WAS RECEIVING, HOW OFTEN HE WAS ABLE TO HAVE REPEAT DOSES, AND ALSO INFORMED THIS NURSE TO "BE SURE AND FLUSH THE IV AFTER SO I GET ALL THE PAIN MEDICINE." THIS NURSE INFORMED PT OF THE ORDERED AMOUNT OF MEDICATION, EXPLAINED THAT AT THIS TIME, THERE WAS ONLY A ONE TIME ORDER, NO ORDERS TO REPEAT, AND THAT PER POLICY, IV TUBING WAS ALWAYS FLUSHED FOLLOWING MEDICATION ADMINISTRATION. PT LYING IN BED, SEMI-MOCK'S, RESPIRATIONS EVEN AND UNLABORED. CALL LIGHT IN REACH, FAMILY AT THE BEDSIDE. URINAL AT THE BEDSIDE REQUESTED. FAMILY MEMBER PRESENT AT BEDSIDE WITH PT. WILL CONTINUE TO MONITOR.
[2018-08-05 10:47] LABS: BASOPHILS 1 % (0-2); EOSINOPHILS 1 % (0-7); LYMPHOCYTES 28 % (15-50); MONOCYTES 7 % (2-11); NEUTROPHILS 60 % (40-80); PLATELET ESTIMATE DECREASED
[2018-08-05 11:14] LABS: APPEARANCE CLEAR (CLEAR); BILIRUBIN NEGATIVE (NEGATIVE); COLOR STRAW (YELLOW); GLUCOSE NEGATIVE (NEGATIVE); KETONE NEGATIVE (NEGATIVE); NITRITE NEGATIVE (NEGATIVE); PROTEIN NEGATIVE (NEGATIVE); SPECIFIC GRAVITY 1.005 (1.005-1.020); UROBILINOGEN NORMAL (NORMAL)
[2018-08-05 11:54] VITALS: BP 112/70; BMI 28.7
[2018-08-05 13:26] VITALS: BP 96/54
--- NOTE | 2018-08-05 14:40 | MORECARE ---
CASE MANAGEMENT DISCHARGE SUMMARY PATIENT: RADHA KEATING UNIT: [id number] ADM DATE: 08/05/18 AGE: 67 : 48 SEX: M ROOM/BED: D.1213 AUTHOR: BRIANNA PEACOCK PHYSICIAN: REFERRING PHYSICIAN: CORTNEY MONTELONGO MD DATE OF SERVICE: 08/05/18 Discharge Plan Patient Name: [facility] KEATING [facility] [facility] 1950 Planned Disposition: Anticipated Discharge Date: 08/08/18 Discharge Date: Expected LOS: 3 Initial Reviewer: [email or web address] Initial Review Date: 08/05/2018 Generated: 08/05/18 3:40 pm DCPIA - Discharge Planning Initial Assessment Updated by [email or web address]: Reyna Cuenca on 08/05/18 2:39 pm * Is the patient Alert and Oriented? Yes * How many steps to enter\exit or inside your home? * PCP JEVON Tenorio at [facility] in [place] * Pharmacy [place] or [facility] * Preadmission Environment Home with Family * ADLs Independent * Equipment Cane CPAP * List name and contact numbers for known caregivers / representatives who currently or will assist patient after discharge: Vy Keating - spouse - [phone] * Verbal permission to speak to the caregivers and representatives has been obtained from the patient. Yes * Community resources currently utilized None * Additional services required to return to the preadmission environment? No * Can the patient safely return to the preadmission environment? Yes * Has this patient been hospitalized within the prior 30 days at any hospital? No Patient Name: RADHA KEATING Page 63638 at 1440 All edits/amendments must be made on the electronic document DICTATION DATE: 08/05/181438 MEAL GRINDER TENDER: MALIK 08/05/18 143 RPT#: [id number] DC DATE: STATUS: ADM IN [facility] [address] [place] [address] END OF REPORT
--- NOTE | 2018-08-05 14:47 | MORECARE ---
CASE MANAGEMENT DISCHARGE SUMMARY PATIENT: RADHA KEATING UNIT: [id number] ADM DATE: 08/05/18 AGE: 67 : 48 SEX: M ROOM/BED: D.1213 AUTHOR: BRIANNA PEACOCK PHYSICIAN: REFERRING PHYSICIAN: CORTNEY MONTELONGO MD DATE OF SERVICE: 08/05/18 Discharge Plan Patient Name: RADHA KEATING Facility: [facility]:[place] : 1950 Planned Disposition: Anticipated Discharge Date: 08/08/18 Discharge Date: Expected LOS: 3 Initial Reviewer: [email or web address] Initial Review Date: 08/05/2018 Generated: 08/05/18 3:47 pm Comments DCP- Discharge Planning Updated by [email or web address]: Reyna Cuenca on 08/05/18 1:[address] Patient Name: RADHA KEATING Admission Status: ER Accout number: [id number] Admission Date: 08-05-2018 : 1950 Admission Diagnosis: Attending: CORTNEY MONTELONGO Current LOS: 1 Anticipated DC Date: 08-08-2018 Planned Disposition: Home with . Denied dc needs @ time of admission. Primary Insurance: MEDICARE PART A ONLY Discharge Planning Comments: REFUSED VA TRANSFER. DECLINE FORM SIGNED BY PATEINT AND FAXED TO THE [facility]. CM SPOKE TO ALAN AT THE [facility] TO NOTIFY OF ADMISSION AND DECLINE TO TRANSFER BY PATIENT. CM met with patient and his , Vy to complete initial dc planning assessment. CM educated patient on the CM role and verbal consent given by patient to complete assessment. CM verified patient's address, phone number, and emergency contact phone numbers. Patient lives at home with his and reports he is independent in his care at home. He has VA benefits but refused to transfer due to it being to hard for his to get back and forth to [place]. At discharge patient plans to return home with his and feels this is a safe discharge. CM discussed availability of home health, rehab services, and medical equipment. Patient denied known discharge needs at this time. Patient reports his will transport him home at time of discharge. CM will continue to follow and will assist as needed with dc plans/needs. Claims Adjuster Crop: Reyna Cuenca RN, [facility] DCPIA - Discharge Planning Initial Assessment Updated by [email or web address]: Reyna Cuenca on 08/05/18 2:39 pm * Is the patient Alert and Oriented? Yes * How many steps to enter\exit or inside your home? * P[facility] in [place] * [facility] [address] * Preadmission Environment Home with Family * ADLs Independent * Equipment Cane CPAP * List name and contact numbers for known caregivers / representatives who currently or will assist patient after discharge: Vy Keating - [facility] - [phone] * Verbal permission to speak to the caregivers and representatives has been obtained from the patient. Yes * Community resources currently utilized None * Additional services required to return to the preadmission environment? No * Can the patient safely return to the preadmission environment? Yes * Has this patient been hospitalized within the prior 30 days at any hospital? No Last DP export: 08/05/18 1:40 p Patient Name: RADHA KEATING Page 67182 at 1447 All edits/amendments must be made on the electronic document DICTATION DATE: 08/05/181446 FARM WORKER: MALIK 08/05/181446 RPT#: [id number] GA DATE: STATUS: ADM IN [facility] [address] [place] [address] END OF REPORT
[2018-08-05 15:38] VITALS: Ht 177.8 cm; Wt 90.9 kg
[2018-08-05 16:00] VITALS: BP 118/50
[2018-08-05 16:35] LABS: % SATURATION 12 % (15-55); IRON 26 ug/dl (35-150); TOTAL IRON BIND CAPACITY 205 ug/dl (260-445); UNSAT IRON BIND CAPACITY 179 ug/dl (150-375)
[2018-08-05 17:07] LABS: APTT 40.8 SECONDS (22.8-39.4); INR 1.06 (0.85-1.17); PROTIME 13.3 SECONDS (11.6-15.0)
--- NOTE | 2018-08-05 18:43 | NUR ---
DR CHIANG CALLED TO GET REPORT ON THE PATIENT, SHE WAS GIVEN LAB VALUES WELL QUESTIONS ANSWERED, DR CHIANG STATED SHE WILL SEE THE PATIENT TOMORROW
--- NOTE | 2018-08-05 19:35 | NUR ---
PATIENT RESTING IN BED WITH NO S/S OF DISTRESS. THE PATIENT IS UPSET AND BELLIGERENT THAT I WAS NOT IN HIS ROOM EARLIER WITH HIS PAIN MEDICATION. I EXPLAINED TO THE PATIENT THAT I CAME WITH HIS PAIN MEDS SOON I COMPLETED REPORT AND THAT I CANNOT GIVE IV MORPHINE TO A PATIENT WITHOUT GETTING REPORT FIRST. THE PATIENT STATED I KNOW YOU HAVE BEEN SITTING OUT THERE DOING NOTHING WHEN YOU SHOULD HAVE BEEN GIVING ME MY PAIN SHOT. I EXPLAINED TO HIM THAT I WAS UNABLE TO GET REPORT IMMEDIATELY WHEN I GOT HERE BECAUSE THE [facility] NURSE WAS ON THE PHONE IN REGARDS TO ANOTHER PATIENT. THE PATIENT THEN TOLD ME "YOU WILL GIVE ME MY NEXT PAIN SHOT AT ELEVEN O'CLOCK, NOT ELEVEN THIRTY FIVE". I EXPLAINED TO THE PATIENT THAT HIS MORPHINE IS SCHEDULED EVERY FOUR HOURS AND HIS NEXT DOSE WOULD BE AVAILABLE AT 2335. PATIENT AGAIN BECAME BELLIGERENT AND TOLD ME HE WAS GOING TO CALL A ADJUNCT BUSINESS INSTRUCTOR ON ME. I TOLD THE PATIENT THAT IF HE WANTED TO SPEAK TO THE COMPUTATIONAL MATHEMATICIAN SHE COULD BE REACHED AT EXT 1441. THE PATIENT THEN TOLD ME "AND YOU WILL FLUSH BEHIND THAT MORPHINE" I EXPLAINED TO THE PATIENT THAT HE HAS FLUIDS RUNNING AT 100 ML PER HOUR AND THAT WOULD FLUSH THE MORPHINE THROUGH THE IV. THE PATIENT WAS UPSET AND TOLD ME TO DIAL THE OLDER ADULT SOCIAL WORK SPECIALIST'S NUMBER. I DIALED THE COMPUTATIONAL MATHEMATICIAN'S NUMBER AND HANDED THE PHONE TO THE PATIENT.
[2018-08-05 20:00] VITALS: BP 132/62
[2018-08-06 00:30] VITALS: BP 100/45
[2018-08-06 02:57] LABS: BASOPHILS 0.4 % (0-2); EOSINOPHILS 1.8 % (0-7); HEMATOCRIT 30.4 % (42.0-54.0); HEMOGLOBIN 9.3 g/dL (13.5-17.5); IMMATURE GRANULOCYTES 0.4 % (0-5); LYMPHOCYTES 27.4 % (15-50); MCH 27.6 pg (26.0-34.0); MCHC 30.6 g/dL (31.0-37.0); MCV 90.2 fL (80.0-100.0); MEAN PLATELET VOLUME 10.3 fL (7.4-10.4); MONOCYTES 31.4 % (2-11); NEUTROPHILS 38.6 % (40-80); PLATELET COUNT 104 10x3/uL (130-400); RBC 3.37 10x6/uL (4.20-6.10); RDW 15.8 % (11.5-14.5); WBC 2.2 10x3/uL (4.8-10.8)
--- NOTE | 2018-08-06 03:03 | NUR ---
WHEN LAB WENT INTO ROOM PT REQUESTED PAIN PILL. WHEN THIS NURSE TOOK THE PAIN PILL IN THE ROOM PT WAS SNORING AND HARD TO WAKE. AFTER GIVING HIM THE MEDICATION PT STATED I WANT THE ONE THAT GOES IN HERE(POINTING AT HIS IV). EXPLAINED THAT I HAD LOOKED AND IT WAS NOT TIME FOR THAT MEDICATION YET. BEFORE LEAVING THE ROOM PT'S EYES WERE CLOSED. AIDE WENT IN TO TAKE V/S AFTER THAT AND PT REQUESTED HIS IV PAIN MEDICATION AGAIN AFTER I HAD TOLD HIM IT WAS'NT TIME.
[2018-08-06 03:05] LABS: CALC OSMOLALITY 278 mosm/kg (275-300); CALCIUM 8.3 mg/dL (8.5-10.1); CARBON DIOXIDE 27.9 mmol/L (21.0-32.0); CHLORIDE - SERUM 105 mmol/L (98-107); GLUCOSE 117 mg/dL (74-106); MAGNESIUM - SERUM 1.9 mg/dL (1.8-2.4); PHOSPHOROUS 4.3 mg/dL (2.5-4.9); POTASSIUM - SERUM 4.6 mmol/L (3.5-5.1); SODIUM 139 mmol/L (136-145); UREA NITROGEN 13 mg/dL (7-18); eGFR NON AFRICAN AMERICAN 79 mL/min (90-120)
[2018-08-06 04:00] VITALS: BP 109/49
[2018-08-06 07:25] VITALS: BP 125/54
[2018-08-06 09:12] LABS: FOLATE (FOLIC ACID) - SERUM >20.0 ng/mL (>3.0)
[2018-08-06 11:05] VITALS: BP 133/55
--- NOTE | 2018-08-06 13:31 | NUR ---
PATIENT REMOVED IV. HAD TO HOLD PRESSURE FOR QUITE SOME TIME BEFORE HE WAS ABLE TO STOP BLEEDING. TIP INTACT. WANTS TO LEAVE AMA. IN ROOM. 2ND ATTEMPT TO GET IN TOUCH WITH DR MONTELONGO TO LET HIM KNOW
--- NOTE | 2018-08-06 14:00 | NUR ---
IV RESITED IN RIGHT FOREARM. PATIENT DECIDED TO STAY.
--- NOTE | 2018-08-06 14:37 | NUR ---
PATIENT REQUESTED THAT I BRING HIM THE AMA PAPERS TO SIGN BECAUSE HE WANTED MORPHINE TO BE PUSHED UNDILUTED AND QUICKLY SO HE WOULD "FEEL IT". WHEN I STATED PROTOCOL HE GOT UPSET AND WANTED TO GO HOME.
--- NOTE | 2018-08-06 16:49 | MORECARE ---
CASE MANAGEMENT DISCHARGE SUMMARY PATIENT: RADHA KEATING UNIT: [id number] ADM DATE: 08/05/18 AGE: 67 : [birth year] SEX: M ROOM/BED: D.1213 AUTHOR: BRIANNA PEACOCK PHYSICIAN: REFERRING PHYSICIAN: CORTNEY MONTELONGO MD DATE OF SERVICE: 08/06/18 Discharge Plan Patient Name: RADHA KEATING Facility: [facility]:[place] : 1950 Planned Disposition: Anticipated Discharge Date: 08/08/18 Discharge Date: 08/06/2018 Expected LOS: 3 Initial Reviewer: [email or web address] Initial Review Date: 08/05/2018 Generated: 08/06/18 5:48 pm Comments DCP- Discharge Planning Updated by [email or web address]: Reyna Cuenca on 08/05/18 1:[address] Patient Name: RADHA KEATING Admission Status: ER Accout number: [id number] Admission Date: 08-05-2018 : 1950 Admission Diagnosis: Attending: CORTNEY MONTELONGO Current LOS: 1 Anticipated DC Date: 08-08-2018 Planned Disposition: Home with . Denied dc needs @ time of admission. Primary Insurance: MEDICARE PART A ONLY Discharge Planning Comments: REFUSED [facility] TRANSFER. DECLINE FORM SIGNED BY PATEINT AND FAXED TO THE [facility]. CM SPOKE TO ALAN AT THE [facility] TO NOTIFY OF ADMISSION AND DECLINE TO TRANSFER BY PATIENT. CM met with patient and his , Vy to complete initial dc planning assessment. CM educated patient on the CM role and verbal consent given by patient to complete assessment. CM verified patient's address, phone number, and emergency contact phone numbers. Patient lives at home with his and reports he is independent in his care at home. He has VA benefits but refused to transfer due to it being to hard for his to get back and forth to [place]. At discharge patient plans to return home with his and feels this is a safe discharge. CM discussed availability of home health, rehab services, and medical equipment. Patient denied known discharge needs at this time. Patient reports his will transport him home at time of discharge. CM will continue to follow and will assist as needed with dc plans/needs. Senior Media Planner: Reyna Cuenca RN, [facility] DCPIA - Discharge Planning Initial Assessment Updated by [email or web address]: Reyna Cuenca on 08/05/18 2:39 pm * Is the patient Alert and Oriented? Yes * How many steps to enter\exit or inside your home? * PCP [facility] at [facility] [place] * Pharmacy [facility] on [address] * Preadmission Environment Home with Family * ADLs Independent * Equipment Cane CPAP * List name and contact numbers for known caregivers / representatives who currently or will assist patient after discharge: Vy Keating - spouse - [phone] * Verbal permission to speak to the caregivers and representatives has been obtained from the patient. Yes * Community resources currently utilized None * Additional services required to return to the preadmission environment? No * Can the patient safely return to the preadmission environment? Yes * Has this patient been hospitalized within the prior 30 days at any hospital? No Last DP export: 08/05/18 1:47 p Patient Name: RADHA KEATING Page 22700 at 1649 All edits/amendments must be made on the electronic document DICTATION DATE: 08/06/181647 WELT CUTTER: MALIK 08/06/181647 RPT#: [id number] NE DATE:08/06/18 STATUS: DIS IN [facility] [address] [place] [address] END OF REPORT
== END 2018-08-06 14:36 | disposition home or self-care (01) | DRG 809 ==
LOC: D.ER 09:01 → D.M3 10:57
PROVIDERS: Family Medicine; ADMIT Internal Medicine Nephrology; ATTEND Internal Medicine Nephrology
DX: D70.9 Neutropenia, unspecified (principal); C95.00 Acute leukemia of unspecified cell type not having achieved remission; D61.818 Other pancytopenia; I10 Essential (primary) hypertension; E78.5 Hyperlipidemia, unspecified; E11.9 Type 2 diabetes mellitus without complications; I25.10 Atherosclerotic heart disease of native coronary artery without angina pectoris; J44.9 Chronic obstructive pulmonary disease, unspecified; K21.9 Gastro-esophageal reflux disease without esophagitis; M54.5 Low back pain; F41.8 Other specified anxiety disorders

== ENCOUNTER 2018-08-24 22:46 | Emergency (ER) | payer OTHER, MEDICARE ==
[~2018-08-24] VITALS: Ht 177.8 cm; Wt 90.9 kg
[~2018-08-24 22:46] MED LIST changes: +CHEMO
[2018-08-24 22:49] VITALS: Ht 177.8 cm; Wt 90.9 kg
[2018-08-24 23:18] LABS: BASOPHILS 0.9 % (0-2); EOSINOPHILS 0 % (0-7); HEMATOCRIT 34.7 % (42.0-54.0); HEMOGLOBIN 11.8 g/dL (13.5-17.5); LYMPHOCYTES 37.4 % (15-50); MCH 29.6 pg (26.0-34.0); MCV 87.2 fL (80.0-100.0); MEAN PLATELET VOLUME 10.5 fL (7.4-10.4); MONOCYTES 14.4 % (2-11); NEUTROPHILS 47.3 % (40-80); PLATELET COUNT 86 10x3/uL (130-400); RBC 3.98 10x6/uL (4.20-6.10); WBC 3.3 10x3/uL (4.8-10.8)
[2018-08-24 23:33] LABS: ALBUMIN 3.3 g/dL (3.4-5.0); ALKALINE PHOSPHATASE 241 U/L (46-116); CARBON DIOXIDE 26.5 mmol/L (21.0-32.0); CHLORIDE - SERUM 103 mmol/L (98-107); SODIUM 136 mmol/L (136-145)
[2018-08-24 23:34] LABS: APTT 38.4 SECONDS (22.8-39.4); INR 0.99 (0.85-1.17); PLATELET ESTIMATE DECREASED; PROTIME 12.6 SECONDS (11.6-15.0)
[2018-08-24 23:47] LABS: CKMB 0.9 U/L (0.0-3.6); MAGNESIUM - SERUM 1.7 mg/dL (1.8-2.4)
[2018-08-24 23:48] LABS: CALC OSMOLALITY 279 mosm/kg (275-300); eGFR NON AFRICAN AMERICAN 70 mL/min (90-120)
[2018-08-24 23:50] LABS: TROPONIN-I 0.504 ng/mL (0.000-0.060)
[2018-08-25 00:03] LABS: CALCIUM 8.4 mg/dL (8.5-10.1); GLUCOSE 150 mg/dL (74-106); POTASSIUM - SERUM 4.8 mmol/L (3.5-5.1); UREA NITROGEN 84 mg/dL (7-18)
[2018-08-25 00:04] LABS: ALT (SGPT) 25 U/L (10-68); BILIRUBIN - TOTAL 0.25 mg/dL (0.2-1.3); CREATINE KINASE 114 UL (21-232); PROTEIN - SERUM 6.6 g/dL (6.4-8.2)
[2018-08-25 01:00] VITALS: BP 133/79
[2018-08-25 02:08] VITALS: BP 146/68
--- NOTE | 2018-08-25 02:08 | NUR ---
[facility] CALLED BACK AND REPORTS THEY HAVE A BED THIS NURSE IS PREPARING TO TRANSFER TO FLOOR. ACCEPTING MD HO, REPORT GIVEN TO GEOVANY GARBER ON 4B
--- NOTE | 2018-08-25 02:36 | NUR ---
FINGER STICK BLOOD SUGAR 266
== END 2018-08-25 02:28 | disposition other institution (70) ==
LOC: OBSVTIME → D.ER 22:46 → D.M2 08-25 01:46 → OBSVTIME 08-25 01:46 → D.M2 08-25 01:46
PROVIDERS: Emergency Medicine
DX: R07.9 Chest pain, unspecified (principal); I25.10 Atherosclerotic heart disease of native coronary artery without angina pectoris; E86.0 Dehydration; R74.8 Abnormal levels of other serum enzymes

== ENCOUNTER → 2019-04-24 11:15 | Outpatient (CLI) | payer MEDICARE ==
[~2019-04-24] VITALS: Ht 177.8 cm; Wt 90.9 kg
--- NOTE | ~2019-04-24 | CN ---
PATIENT NAME:RADHA RAJAN MEDICAL RECORD: [id number] : 46 LOCATION:D.CAT ADMIT DATE: ACCOUNT: [id number] CONSULTING PHYSICIAN: CECIL COWAN MD REFERRING PHYSICIAN: CECIL COWAN MD DATE OF CONSULTATION: 04/24/2019 DIAGNOSES: 1. Unstable angina. 2. Coronary artery disease. 3. Previous percutaneous transluminal coronary angioplasty stent. 4. Hypertension. 5. Hyperlipidemia. 6. Smoking history. HISTORY OF PRESENT ILLNESS: This is a gentleman known to us, status post PTCA stent approximately a year and a half ago. For the past 2 days, he has been having chest discomfort in an escalating fashion just like that of his previous angina. His pain is a weight like heavy sensation across the anterior chest radiating to down his left arm and left shoulder area. It is not positional. It is quite severe at times. He is still having 6/10 chest pain now. PHYSICAL EXAMINATION: CONSTITUTIONAL/GENERAL APPEARANCE: Well nourished, well developed, appears stated age. EYES: Lids and conjunctivae noninjected. No discharge. No pallor. ENT: Lips within normal limit. No cyanosis. No pallor. NECK: Carotid arteries, bilateral normal upstroke. No bruits. No thrills. No jugular venous pressure or distention. CERVICAL LYMPH NODES: Nontender. Nonenlarged. THYROID: Not enlarged. No nodules. CARDIOVASCULAR: Precordial exam, nondisplaced. No heaves or pericardial thrills. Rate and rhythm, regular. Heart sounds, normal S1, normal S2. No S3, no gallop, no rub. Systolic murmur, not heard. Diastolic murmur, not heard. RESPIRATORY: Respiratory effort, unlabored. Normal curvature. No thoracic deformity. No chest wall tenderness. Percussion, resonant. Auscultation, clear. No wheezes, no rales, no rhonchi. ABDOMEN: Soft, nondistended, nontender. No abdominal pain, no vomiting and normal appetite. MUSCULOSKELETAL: No joint tenderness, normal gait, normal tone. SKIN: Warm and dry. OVERALL IMPRESSION: Unstable angina. He has no acute ST-T abnormalities on his EKG, but his chest pain is just like that of his previous angina. Last cardiac intervention was a year and a half ago. Most likely, he does have recurrent hemodynamically significant coronary artery disease. We will proceed with coronary angiography. Further care depends upon findings of the angiography. TRANSINT:[id number] Voice Confirmation ID: [id number] DOCUMENT ID: [id number] CONSULT REPORT [id number] RADHA RAJAN JEFFREY MD CC: [id number] DICTATION DATE: 04/24/19 1159 EMBALMER ASSISTANT: 04/24/192057 [facility] [address] [place] [address]
--- NOTE | ~2019-04-24 | OP ---
PATIENT NAME: RADHA RAJAN MEDICAL RECORD: [id number] :46 LOCATION:D.CAT ADMISSION DATE: SURGEON: CECIL COWAN MD DATE OF OPERATION: 04/24/2019 PROCEDURES: 1. PTCA stent LAD. 2. Left heart catheterization. 3. Selective coronary angiography. 4. Left ventriculogram. INDICATION: Non-Q-wave myocardial infarction. DESCRIPTION OF PROCEDURE: After informed consent was obtained and after detailed explanation of risks, benefits, alternative therapies, the patient elected to proceed with angiogram and angioplasty. The right femoral area was prepped and draped in normal sterile fashion. Right femoral artery was cannulated via modified Seldinger technique with placement of 6-H[place]er sheath. All catheters exchanged through this sheath. FINDINGS: Left ventriculogram was performed in standard 30-degree LYONS view, reveals good cardiac wall motion, ejection fraction estimated at 55%. SELECTIVE CORONARY ANGIOGRAPHY: 1. Left main is with no significant angiographic disease. 2. Left anterior descending has 90% stenosis in the mid vessel. 3. Left circumflex has moderate irregularities, but no flow-limiting stenosis. 4. Right coronary has moderate irregularities, but no flow-limiting stenosis. PTCA STENT OF THE LAD: The stent used was a 3.0 x 9 mm [place]. Result was 0% residual stenosis. OVERALL IMPRESSION: Successful percutaneous transluminal coronary angioplasty stent of the left anterior descending going from 90% initial stenosis to 0% residual. TRANSINT:[id number] Voice Confirmation ID: [id number] DOCUMENT ID: [id number] CECIL COWAN MD CC: [id number] DICTATION DATE: 04/24/19 1331 PSYCHIATRIC ASSISTANT: 04/25/19 0012 DEP CLI 04/24/19 [place] [id number] [place] [id number]
--- NOTE | ~2019-04-24 | EC ---
PATIENT:RADHA RAJAN DATE OF SERVICE: 04/24/19 SEX: M MEDICAL RECORD: [id number] DATE OF : [birth year] LOCATION:D.CAT AGE OF PATIENT: 68 ADMISSION DATE: 04/24/19 REFERRING PHYSICIAN: INTERPRETING PHYSICIAN: CECIL COWAN MD ECHOCARDIOGRAM REPORT ECHO CHARGES Date: CLINICAL DIAGNOSIS: ECHOCARDIOGRAPHIC MEASUREMENTS (adult normal given) AC root (d.<3.7cm) cm LV Septum d (<1.2 cm> cm Valve Excursion cm LV Septum (systole) cm Left Atria (s.<4.0cm> cm LVPW d(<1.2cm) cm RV (d.<2.3cm) cm LVPW (sytole) cm LV diastole(<5.6CM) cm MV E-F(>70mm/sec) cm LV systole cm LVOT Diameter cm MV exc.(>10mm) cm Est.ejection fraction (50-75%) % DOPPLER: LVIT cm/sec A cm/sec E cm/sec LA cm/sec RVSP mmHg LVOT cm/sec AOP1/2T m/s Asc. Ao cm/sec RVOT cm/sec RA cm/sec PA cm/sec AV Gradient Peak mmHg AV Mean mmHg AV Area cm MV Gradient Peak mmHg MV Mean mmHg MV Area cm COMMENTS: Inclinometer Tester: Home Appliance Washing Machine Mechanic: BRYN# Pericardial Effusion DATE OF SERVICE: 04/24/2019 PROCEDURE: Echocardiogram. FINDINGS: 1. Left ventricular chamber size is within normal limits. Left ventricular systolic function is normal at 55%. 2. Left atrium, right atrium, and right ventricle chamber sizes are within normal limits. 3. Valvular structures have normal structure and motion. ECHOCARDIOGRAM REPORT [id number] RADHA RAJAN 4. Doppler interrogation reveals no significant valvular insufficiency or stenosis. 5. No evidence of pericardial effusion or left ventricular thrombus. Pulmonary systolic pressure is normal estimated at 21 mmHg. TRANSINT:[id number] Voice Confirmation ID: [id number] DOCUMENT ID: [id number] CECIL COWAN MD CC: [id number] DICTATION DATE: 04/25/19 1027 DRIVING INSTRUCTOR: 04/25/19 1601 DEP CLI 04/24/[address] [place] [address]
[2019-04-24 11:19] VITALS: BP 117/67
[2019-04-24 11:34] VITALS: Ht 177.8 cm; Wt 90.9 kg
[2019-04-24 11:58] VITALS: Ht 177.8 cm; Wt 90.9 kg
== END | disposition home or self-care (01) ==
LOC: D.ER → D.CATH 11:15 → D.ER 11:15 → EDSTATUS 12:42
PROVIDERS: ATTEND Internal Medicine Interventional Cardiology
DX: I21.4 Non-ST elevation (NSTEMI) myocardial infarction (principal)
CPT/HCPCS: 93458; C9600

== ENCOUNTER 2019-07-03 20:09 | Inpatient (IN) | payer OTHER ==
[~2019-07-03] VITALS: Ht 177.8 cm; Wt 101.0 kg
[2019-07-03 21:17] LABS: BASOPHILS 0.2 % (0-2); EOSINOPHILS 1.4 % (0-7); HEMATOCRIT 39.1 % (42.0-54.0); HEMOGLOBIN 12.9 g/dL (13.5-17.5); IMMATURE GRANULOCYTES 0.2 % (0-5); LYMPHOCYTES 11.9 % (15-50); MCH 30.9 pg (26.0-34.0); MCV 93.8 fL (80.0-100.0); MEAN PLATELET VOLUME 9.6 fL (7.4-10.4); MONOCYTES 13.1 % (2-11); NEUTROPHILS 73.2 % (40-80); PLATELET COUNT 123 10x3/uL (130-400); RBC 4.17 10x6/uL (4.20-6.10); RDW 12.9 % (11.5-14.5); WBC 9.4 10x3/uL (4.8-10.8)
[2019-07-03 21:23] LABS: APTT 34.1 SECONDS (22.8-39.4); CALC OSMOLALITY 273 mosm/kg (275-300); CALCIUM 9.4 mg/dL (8.5-10.1); CARBON DIOXIDE 31.4 mmol/L (21.0-32.0); CHLORIDE - SERUM 95 mmol/L (98-107); CREATININE - SERUM 1.8 mg/dL (0.6-1.3); INR 1.01 (0.85-1.17); POTASSIUM - SERUM 3.2 mmol/L (3.5-5.1); PROTIME 13.3 SECONDS (11.6-15.0); SODIUM 134 mmol/L (136-145); UREA NITROGEN 34 mg/dL (7-18); eGFR NON AFRICAN AMERICAN 40 mL/min (90-120)
[2019-07-03 21:24] LABS: BILIRUBIN NEGATIVE (NEGATIVE); GLUCOSE NEGATIVE (NEGATIVE); KETONE NEGATIVE (NEGATIVE); NITRITE NEGATIVE (NEGATIVE); UROBILINOGEN NORMAL (NORMAL)
[2019-07-03 21:24] LABS: GLUCOSE 62 mg/dL (74-106)
[2019-07-03 21:44] LABS: ALBUMIN 4.2 g/dL (3.4-5.0); ALKALINE PHOSPHATASE 66 U/L (30-120); ALT (SGPT) 49 U/L (10-68); BILIRUBIN - TOTAL 0.74 mg/dL (0.2-1.3); CKMB 1.2 U/L (0.0-3.6); CREATINE KINASE 283 UL (21-232); PRO BNP 49 pg/mL (0-125); PROTEIN - SERUM 8.4 g/dL (6.4-8.2)
[2019-07-03 21:53] LABS: TROPONIN-I 0.119 ng/mL (0.000-0.060)
--- NOTE | 2019-07-04 00:30 | NUR ---
TO BED FROM ER BED LOW AND LOCKED PT GIVEN CALL LIGHT AND ROOM INSTRUCTION
--- NOTE | 2019-07-04 00:47 | NUR ---
PER PT "I CANT TELL YOU WHEN I TOOK MY MEDS" DID YOU TAKE SOME YESTERDAY...PT "I CANT TELL YOU"
[2019-07-04 00:52] VITALS: BP 119/62
--- NOTE | 2019-07-04 01:08 | NUR ---
I HAVE TOLD PT HE NEEDS TO BE NPO HE IS INSISTING HE WILL CHEW TOBACO I HAVE TOLD PT THAT IT IS NOT EXCEPTABLE WHEN NPO
[2019-07-04 04:55] VITALS: BP 122/70
[2019-07-04 05:23] VITALS: BP 117/64
[2019-07-04 06:02] LABS: BASOPHILS 0.3 % (0-2); EOSINOPHILS 2.1 % (0-7); HEMATOCRIT 36.2 % (42.0-54.0); HEMOGLOBIN 11.9 g/dL (13.5-17.5); IMMATURE GRANULOCYTES 0.1 % (0-5); LYMPHOCYTES 18.5 % (15-50); MCH 30.8 pg (26.0-34.0); MCHC 32.9 g/dL (31.0-37.0); MCV 93.8 fL (80.0-100.0); MEAN PLATELET VOLUME 9.6 fL (7.4-10.4); MONOCYTES 12.7 % (2-11); NEUTROPHILS 66.3 % (40-80); PLATELET COUNT 107 10x3/uL (130-400); RBC 3.86 10x6/uL (4.20-6.10)
[2019-07-04 06:21] LABS: % SATURATION 20 % (15-55); IRON 59 ug/dl (35-150); TOTAL IRON BIND CAPACITY 294 ug/dl (260-445); UNSAT IRON BIND CAPACITY 235 ug/dl (150-375)
[2019-07-04 06:37] LABS: C-REACTIVE PROTEIN 4.4 mg/dL (0.0-0.9); CALCIUM 8.9 mg/dL (8.5-10.1); CARBON DIOXIDE 32.5 mmol/L (21.0-32.0); CHLORIDE - SERUM 97 mmol/L (98-107); CKMB 1.2 U/L (0.0-3.6); CREATINE KINASE 269 UL (21-232); CREATININE - SERUM 2.1 mg/dL (0.6-1.3); FERRITIN 280 ng/mL (3-244); MAGNESIUM - SERUM 1.7 mg/dL (1.8-2.4); PHOSPHOROUS 5.3 mg/dL (2.5-4.9); POTASSIUM - SERUM 3.2 mmol/L (3.5-5.1); SODIUM 136 mmol/L (136-145); UREA NITROGEN 38 mg/dL (7-18); eGFR NON AFRICAN AMERICAN 33 mL/min (90-120)
[2019-07-04 06:45] LABS: CALC OSMOLALITY 281 mosm/kg (275-300); GLUCOSE 124 mg/dL (74-106); TROPONIN-I 0.121 ng/mL (0.000-0.060)
[2019-07-04 08:07] VITALS: BP 141/81
[2019-07-04 10:05] LABS: ERYTHROCYTE SEDIMENTATION RATE 36 mm/hr (0-20)
[2019-07-04 10:50] LABS: CKMB 1.6 U/L (0.0-3.6); CREATINE KINASE 265 UL (21-232)
[2019-07-04 10:52] LABS: TROPONIN-I 0.106 ng/mL (0.000-0.060)
[2019-07-04 11:02] VITALS: BP 117/64; BMI 31.6
[2019-07-04 16:00] LABS: CKMB 1.6 U/L (0.0-3.6); CREATINE KINASE 288 UL (21-232)
[2019-07-04 16:12] LABS: TROPONIN-I 0.112 ng/mL (0.000-0.060)
--- NOTE | 2019-07-04 19:00 | NUR ---
EVENING ROUNDS COMPLETE. PT DENIES ANY NEEDS AT THIS TIME. PT C/O PAIN 11/24. TEACHING ON MEDICATION ADMINISTRATION. PT ALREADY RECIEVED PRN PAIN MEDICATION. TEACHING ON WHEN NEXT DOSE IS AVAILABLE. PT STATED THAT HE UNDERSTOOD. NO OTHER NEEDS VOICED AT THIS TIME. CL IN REACH, BED IN LOWEST POSITION.
[2019-07-04 21:31] VITALS: BP 92/47
--- NOTE | 2019-07-05 00:20 | NUR ---
PT MANUAL BP 70/30. NITRO BID REMOVED. ANISH BENJAMIN APN NOTIFIED. 500ML BOLUS GIVEN AT THIS TIME. WILL REASSESS WHEN BOLUS IS DONE. PT C/O PAIN 11/24 REQUESTING MORPHINE AND NORCO AT THIS TIME. EXPLAINED TO PT IMPORTANCE OF BP WHEN DEALING WITH PAIN MEDICAITION. PT DENIED BP BEING SO LOW, BP TAKEN AGAIN MANUALLY 72/34. EXPLAINED TO PT AGAIN THAT NO PAIN MEDICAITON WILL BE ADMINISTERED UNTIL BP IS GREATER THAN 100/60. PT BECAME ANGRY, STATING "THIS IS THE WORST NIGHT [place] HAD AT THIS HOSPITAL, ITS NOT MY FAULT MY BLOOD PRESSURE IS LOW, I BROKE MY NECK AND I NEED THAT PAIN SHOT TO STOP HURTING."
[2019-07-05 00:30] VITALS: BP 80/50
--- NOTE | 2019-07-05 06:20 | NUR ---
PT REQUESTED PAIN MEDICATION, DUE TO PT LOW BP THIS NURSE OFFERED TO GIVE PT HIS PRN NORCO. PT STATED "YOU GIVE ME THE PAIN SHOT, I DONT GIVE A DAMN WHAT MY BLOOD PRESSURE IS. I DONT WANT YOU A NURSE EVER AGAIN. I NEED THE WATER JET LOOM FIXER RIGHT NOW AND TELL HER TO BRING MY PAIN SHOT." JUANITO HOLMAN RN (CHARGE NURSE) ENTERED PT ROOM, PT STARTED TO SCREAM "GIVE ME MY PAIN SHOT." JUANITO HOLMAN RN ATTEMPTED TO EXPLAIN TO PT REASONING ON NOT TAKING THE PAIN SHOT AND TAKING THE PRN NORCO. PT REFUSED TO REASON WITH ANYONE AND BEGAN TO SCREAM AGAIN. PT DOOR WAS CLOSED. SAND DIGGER WAS MADE AWARE OF THE SITUATION. THIS NURSE WAS TOLD TO RELAY TO INSPECTOR OPEN DIE.
[2019-07-05 06:29] LABS: BASOPHILS 0.7 % (0-2); EOSINOPHILS 4.6 % (0-7); HEMATOCRIT 34.5 % (42.0-54.0); HEMOGLOBIN 11.2 g/dL (13.5-17.5); IMMATURE GRANULOCYTES 0.2 % (0-5); LYMPHOCYTES 24.5 % (15-50); MCH 30.7 pg (26.0-34.0); MCHC 32.5 g/dL (31.0-37.0); MCV 94.5 fL (80.0-100.0); MEAN PLATELET VOLUME 9.8 fL (7.4-10.4); MONOCYTES 14.7 % (2-11); NEUTROPHILS 55.3 % (40-80); PLATELET COUNT 115 10x3/uL (130-400); RBC 3.65 10x6/uL (4.20-6.10); RDW 13.3 % (11.5-14.5)
[2019-07-05 06:37] LABS: WBC 4.4 10x3/uL (4.8-10.8)
[2019-07-05 06:43] LABS: ANION GAP 10.4 mmol/L (8-16); CALCIUM 7.9 mg/dL (8.5-10.1); CARBON DIOXIDE 30.2 mmol/L (21.0-32.0); MAGNESIUM - SERUM 1.6 mg/dL (1.8-2.4); PHOSPHOROUS 5.8 mg/dL (2.5-4.9); POTASSIUM - SERUM 3.6 mmol/L (3.5-5.1)
--- NOTE | 2019-07-05 07:31 | NUR ---
PTS VERY VERBALLY ABUSIVE TO RN THIS AM. COMPLAINING OF WANTING PAIN MEDICATION. EDUCATED PATIENT IF BLOOD PRESSURE IS PERMITTING THE RN WILL BRING IN IV MORPHINE SOON. ELECTRIC BLOOD PRESSURE WAS 92/33. MANUAL BLOOD PRESSURE IS 93/42
[2019-07-05 07:59] VITALS: BP 93/43
[2019-07-05 11:41] VITALS: BP 109/50
--- NOTE | 2019-07-05 13:13 | NUR ---
PT UPSET THAT BLOOD PRESSURE IS TO LOW FOR IV PAIN MEDICATION. KEEPS REQUESTING STAFF TO RECHECK TO SEE IF ITS HIGH ENOUGH NOW. PT STATES THAT SOMETIMES HE TAKES 3 OR 4 HYDROS AT ONCE TO RELIEVE PAIN. EDUCATED PT THAT THIS IS AN UNSAFE PRACTICE. PT IS VERBALLY UPSET THAT THIS RN REFUSES TO GIVE IV MORPHINE TO THE PATIENT.
[2019-07-05 13:46] VITALS: Ht 177.8 cm; Wt 101.0 kg
[2019-07-05 16:33] VITALS: BP 105/48
--- NOTE | 2019-07-05 19:00 | NUR ---
EVENING ROUNDS COMPLETE. PT SITTING UP IN BED. AT BEDSIDE. NO SIGNS OF DISTRESS NOTED AT THIS TIME. CL IN REACH, BED IN LOWEST POSITION.
[2019-07-05 20:00] VITALS: BP 112/80
--- NOTE | 2019-07-05 23:07 | NUR ---
PT BLADDER SCAN POST VOID, 260ML.
[2019-07-06] VITALS: BP 125/56
--- NOTE | 2019-07-06 00:35 | NUR ---
WHEN PRN MORPHINE WAS GIVEN, PT STATED"OH YEAH I CAN FEEL IT GOING IN, ITS WORKING. I THINK YOU CAN PUSH THAT FASTER." THIS NURSE TOLD PT THAT PAIN MEDICATION IS TO BE PUSHED OVER A CERTIAN AMOUNT OF TIME AND THAT IT WILL NOT BE PUSHED ANY FASTER.
[2019-07-06 04:00] VITALS: BP 120/66
--- NOTE | 2019-07-06 06:38 | NUR ---
PT REFUSED UPDRAFT TX
[2019-07-06 07:05] LABS: BASOPHILS 0.8 % (0-2); EOSINOPHILS 4.1 % (0-7); HEMATOCRIT 32.3 % (42.0-54.0); HEMOGLOBIN 10.7 g/dL (13.5-17.5); IMMATURE GRANULOCYTES 0.3 % (0-5); LYMPHOCYTES 30.1 % (15-50); MCH 30.5 pg (26.0-34.0); MCHC 33.1 g/dL (31.0-37.0); MEAN PLATELET VOLUME 9.9 fL (7.4-10.4); MONOCYTES 14.8 % (2-11); NEUTROPHILS 49.9 % (40-80); PLATELET COUNT 110 10x3/uL (130-400); RBC 3.51 10x6/uL (4.20-6.10); RDW 12.8 % (11.5-14.5); WBC 3.9 10x3/uL (4.8-10.8)
[2019-07-06 07:13] LABS: ANION GAP 8.5 mmol/L (8-16); CALCIUM 7.9 mg/dL (8.5-10.1); CARBON DIOXIDE 31.2 mmol/L (21.0-32.0); CREATININE - SERUM 2.2 mg/dL (0.6-1.3); PHOSPHOROUS 3.9 mg/dL (2.5-4.9); POTASSIUM - SERUM 3.7 mmol/L (3.5-5.1)
[2019-07-06] MEDS ORDERED: LEVOFLOXACIN500 MG PO (13:17)
[2019-07-06] MEDS ORDERED: MIDODRINE HCL2.5 MG PO (13:18)
[2019-07-06] MEDS ORDERED: FLAGYL500 MG PO (13:18)
--- NOTE | 2019-07-07 07:36 | MORECARE ---
CASE MANAGEMENT DISCHARGE SUMMARY PATIENT: RADHA RAJAN UNIT: [id number] ADM DATE: 07/05/19 AGE: 68 : 46 SEX: M ROOM/BED: D.2136 AUTHOR: BRIANNA PEACOCK PHYSICIAN: REFERRING PHYSICIAN: CORTNEY MONTELONGO MD DATE OF SERVICE: 07/07/19 Discharge Plan Patient Name: RADHA RAJAN [facility] [facility] 1950 Planned Disposition: Home Anticipated Discharge Date: Discharge Date: 07/06/2019 Expected LOS: Initial Reviewer: [email or web address] Initial Review Date: 07/04/2019 Generated: 07/07/19 8:36 am Patient Name: RADHA RAJAN Page [id number] at 0736 All edits/amendments must be made on the electronic document DICTATION DATE: 07/07/19 0736 REGISTERED SAFETY ENGINEER: MALIK 07/07/19 0736 RPT#: [id number] DC DATE:07/06/19 STATUS: DIS IN [facility] [address] [place] [address] END OF REPORT
--- NOTE | 2019-07-07 07:43 | MORECARE ---
CASE MANAGEMENT DISCHARGE SUMMARY PATIENT: RADHA RAJAN UNIT: [id number] ADM DATE: 07/05/19 AGE: 68 : 46 SEX: M ROOM/BED: D.3246 AUTHOR: BRIANNA PEACOCK PHYSICIAN: REFERRING PHYSICIAN: CORTNEY MONTELONGO MD DATE OF SERVICE: 07/07/19 Discharge Plan Patient Name: RADHA RAJAN Facility: [facility]:[place] : 1950 Planned Disposition: Home Anticipated Discharge Date: Discharge Date: 07/06/2019 Expected LOS: Initial Reviewer: [email or web address] Initial Review Date: 07/04/2019 Generated: 07/07/19 8:43 am Comments DCP- Discharge Planning Updated by [email or web address]: Alexandra Casanova on 07/07/19 6:[address] Patient Name: RADHA RAJAN Admission Status: ER Accout number: [id number] Admission Date: 07-05-2019 : 1950 Admission Diagnosis:CHEST PAIN, UNSPECIFIED Attending: CORTNEY MONTELONGO Current LOS: 1 Anticipated DC Date: Planned Disposition: Home Primary Insurance: [employer] LATE ENTRY. COMPLETED AT 1350 07/06/19 Discharge Planning Comments: CM met with patient to complete initial dc planning assessment. CM educated patient on the CM role and verbal consent given by patient to complete assessment. CM verified patient's address, phone number, and emergency contact phone numbers. Patient lives at with home with . Patient plans to return home and feels this is a safe discharge. CM discussed availability of home health, rehab services, and medical equipment. Patient denied known discharge needs at this time. Declination signed for refusal of services. Transportation provider at discharge will be his daughter [phone] . School Speech Language Pathologist: Alexandra Casanova Last DP export: 07/07/19 6:36 a Patient Name: RADHA RAJAN Page [id number] at 0743 All edits/amendments must be made on the electronic document DICTATION DATE: 07/07/19 0743 METEOROLOGICAL EQUIPMENT REPAIRER: MALIK 07/07/19 0743 RPT#: [id number] DC DATE:07/06/19 STATUS: DIS IN [facility] [address] [place] [address] END OF REPORT
== END 2019-07-06 17:01 | disposition home or self-care (01) | DRG 392 ==
LOC: D.ER 20:09 → D.M2 22:57 → OBSVTIME 22:57 → D.M2 22:57
PROVIDERS: Family Medicine; ADMIT Internal Medicine Nephrology; ATTEND Internal Medicine Nephrology
DX: K52.9 Noninfective gastroenteritis and colitis, unspecified (principal); N17.9 Acute kidney failure, unspecified; F17.203 Nicotine dependence unspecified, with withdrawal; I24.9 Acute ischemic heart disease, unspecified; I25.119 Atherosclerotic heart disease of native coronary artery with unspecified angina pectoris; D64.9 Anemia, unspecified; E87.6 Hypokalemia; E11.9 Type 2 diabetes mellitus without complications; I10 Essential (primary) hypertension; N40.0 Benign prostatic hyperplasia without lower urinary tract symptoms; F41.8 Other specified anxiety disorders; J44.9 Chronic obstructive pulmonary disease, unspecified; K21.9 Gastro-esophageal reflux disease without esophagitis; I95.9 Hypotension, unspecified